=== PATIENT | female | born 2005 | race Caucasian/White ===

== ENCOUNTER 2025-04-02 14:47 | Outpatient (AMB) | payer BC, SELFPAY ==
--- OUTSIDE RECORDS SUMMARY | 2021-11-18 15:25 | XMS_ITS | Encounter Summary ---
Author Organization [facility] Address [address] [facility] [address] [place] [address] Phone Care Team Providers Care [place] Dental Lab Technician Name Role Phone Val Draper MD Primary Care Provid er Encounter Details Date Type Department Care Team (Late st Contact Info) Description 11/18/2021 3:25 PM EDT Hospital Encounter [facility] [address] [place] [address] Constanza Martinez FNP [address] [place] [address] [place] [address] [email or web address] Social History Tobacco Use Types Packs/Day Years [...] acute displaced fracture or dislocation. Constanza Martinez TABULATING CLERK IMG XR UPPER EXTREMITY Kristi l Result documented in this encounter Visit Diagnoses Not on filedocumented in this encounter Care Teams [place] Dental Lab Technician Relationship Specialty Start Date End Date Val Draper MD [address] [place] [address] GERALDO Olivares [address] PCP - General Pediatrics 11/18/21 08/14/24 documented as of this encounter Additional Source Comments The information contained in this document represents components of the legal health record. It is not the complete legal health record.[facility]
--- NOTE | 2025-04-02 14:56 | A.OFFPC_ITS ---
Vital Signs 04/02/25 15:06 Height 5 ft 5.83 in Weight 167 lb 2 oz BMI 27.1 BP 114/78 Blood Pressure Location Rt brachial Position Sitting Respiration 12 Pulse 92 Pulse Source Pulse Oximeter Temp 98.9 F Temp Source Oral Pulse Oximetry (%) 99 Oxygen Delivery Method Room Air Intake Visit Reasons: Est. Care Intake Note: New pateint visit Supervisor Kennel Required: No Allergies amoxicillin Allergy (Mild, Verified 04/02/25 15:03) Hives Tobacco use date assessed: 04/02/25 Dental Screening Dental Screen Date: 04/02/25 Did you have a dental visit in the last 12 months?: Yes Did you have a dental problem in the last 6 months where you did not have access to dental care?: No Was dental information given to patient?: Patient has dentist HPI HPI Comments History of Present Illness Details 20 year old female with past medical his tory of eczema, uveitis, RAD, presenting to [facility] care. In Jul/Aug got a cold/flu. Her acute symptoms resolved but cough has persisted since. She has been reliant on her inhaler that was prescribed around that time by urgent care. BH: Has been seeing a therapist for the past 9 months. Dad takes wellbutrin so therapist thinks this may be beneficial. Saw gynecology in the past. Has not had pap. She would like to start an OCP ROS CONSTITUTIONAL: Denies weight loss, fever and chills. HEENT: Denies changes in vision and hearing. RESPIRATORY: Denies SOB and cough. CV: Denies palpitations and CP GI: Denies abdominal pain, nausea, vomiting and diarrhea. : Denies dysuria and urinary frequency. MSK: Denies new myalgia and joint pain. SKIN: Belly button rash NEUROLOGICAL: Denies headache PSYCHIATRIC: Denies recent changes in mood. PHYSICAL EXAM: GENERAL: Alert and oriented x 3. NAD EYES: EOMI. Anicteric. HENT: Moist mucous membranes. No scleral icterus. No cervical lymphadenopathy. LUNGS: Clear to auscultation bilaterally. CARDIOVASCULAR: Regular rate and rhythm. No murmur. No JVD. ABDOMEN: Soft, non-tender +bs EXTREMITIES: No edema. Non-tender. SKIN: Tinea belly button NEUROLOGIC: No focal neurological deficits. CN II-XII grossly intact PSYCHIATRIC: Cooperative. Appropriate mood and affect PFSH Surgical History No pertinent past surgical history Family History Father Anxiety OCD (obsessive compulsive disorder) Paternal Grandfather Anxiety OCD (obsessive compulsive disorder) Other FH: mental illness Social History Housing: Condominium Alcohol intake: current Patient Tobacco Use Status: Never used Tobacco e-Cigarette/Vaping Use: Never Used Second Hand Smoke Exposure: No service: No Current occupational status: student Cognitive needs: No Hearing needs: No Vision needs: No Questionnaire PHQ-9 Over the last 2 weeks, how often have you been bothered by any of the following problems? 1. Little interest or pleasure in doing things: not at all 2. Feeling down, depressed, or hopeless: not at all 3. Trouble falling or staying asleep, or sleeping too much: not at all 4. Feeling tired or having little energy: not at all 5. Poor appetite or overeating: not at all 6. Feeling bad about yourself - or that you are a failure or have let yourself or your family down: not at all 7. Trouble concentrating on things, such as reading the newspaper or watching television: not at all 8. Moving or speaking so slowly that other people could have noticed. Or the opposite - being so fidgety or restless that you have been moving around a lot more than usual: not at all 9. Thoughts that you would be better off or of hurting yourself in some way: not at all Total score: 0 Depression Screening Interpretation: Negative Depression Screening Done: Yes 20441 - PHQ-9 Billing: Yes Source: Developed by Drs. Kervin Rodgers, Maureen Albert, Doyle Lunsford and colleagues, with an educational lexus from [email or web address]. Thrive Questionnaire Date Thrive assessed: 03/30/25 I am a: Patient What is your living situation today?: I have a steady place to live Within the past 12 months, did the food you bought not last and you didn't have the money to get more?: Never true Within the past 12 months, did you worry whether your food would run out before you got money to buy more?: Never true Do you have trouble paying for medicines?: No Do you have trouble getting transportation to medical appointments?: No Do you have trouble paying your heating and electricity bill?: No Do you have trouble taking care of your child, family member or friend?: No Do you have trouble with day-to-day activities such as bathing, preparing meals, shopping, managing finances, etc.?: No Are you currently unemployed and looking for a job?: No Are you interested in more education?: No Please select the resources that you would like help with: None Currently or been in a relationship where the following occur: No concerns reported THRIVE Score: 0 AUDIT C Alcohol Use Questionnaire (AUDIT-C) 1. How often do you have a drink containing alcohol?: 2-4 times a month 2. How many drinks containing alcohol do you have on a typical day when you are drinking?: 1 or 2 3. How often do you have six or more drinks on one occasion?: Never Total Score: 2 BOB-7 AMB Questionnaire BOB-7 Date BOB - 7 assessed: 04/02/25 Feeling nervous, anxious, or on edge: 1 = Several days Not being able to stop or control worryin = Several days Worrying too much about different things: 1 = Several days Trouble relaxin = Several days Being so restless that it is hard to sit still: 0 = Not at all Becoming easily annoyed or irritable: 0 = Not at all Feeling afraid as if something awful might happen: 1 = Several days Total BOB-7 score (0-4 normal; 5-9 mild; 10-14 moderate; 15-21 severe): 5 Source: Developed by Drs. Kervin Rodgers, Maureen Albert, Doyle Lunsford and colleagues, with an educational lexus from [email or web address]. BOB-7 Assessment Billing BOB-7 Assessment Tool: BOB-7 Assessment 38864 Physical exam (Primary Care) Vital Signs: Last Vital Signs Temp 98.9 F 04/02/25 15:06 Pulse 92 04/02/25 15:06 Resp 12 04/02/25 15:06 BP 114/78 04/02/25 15:06 Pulse Ox 99 04/02/25 15:06 Oxygen Delivery Method Room Air 04/02/25 15:06 BMI result Body Mass Index 27.1 Tobacco/Smoking Status: Tobacco use Status Tobacco use date assessed 04/02/25 04/02/25 14:59 Patient Tobacco Use Status Never used Tobacco 04/02/25 15:10 e-Cigarette/Vaping Use Never Used 04/02/25 14:59 PHQ-9: PHQ-9 Score PHQ-9: Total score 0 04/02/25 15:23 Depression Screening Interpretation: Negative Thrive Assessment: Date of Thrive Assessment Date Thrive assessed 03/30/25 04/02/25 14:59 Currently or been in a relationship where the following occur: No concerns reported Coding Level of Care Code New Pt Level 4 (62912) Complex EM visit Add On G2211 Diagnoses Chronic cough R05.3 Tinea cruris B35.6 control counseling Z30.09 Additional Codes BOB-7 Assessment Billing - BOB-7 Assessment Tool: BOB-7 Assessment 62971 ([id number]) PHQ-9 - 23859 - PHQ-9 Billing: Yes ([id number]) Assessment & Plan Assessment & Plan (1) Chronic cough: Code(s): R05.3 - Chronic cough Category: Medical (2) Tinea cruris: Code(s): B35.6 - Tinea cruris Category: Medical (3) control counseling: Code(s): Z30.09 - Encounter for other general counseling and advice on contraception Category: Medical Plan 20 yo to establish care Past medical, surgical, social reviewed OCP sent. Follows with non destructive testing supervisor. Advised to schedule an appt for pap Anxiety/depression-trial weelbutrin. Follow up in 4 weeks. continue therapy Cough, shortness of breath-pft, referral pulm Umbilical tinea-fluconazole x 2 doses, clotrimazole ordered Orders: Orders PFT pulmonary function test Today J45.909 - Unspecified asthma, uncomplicated, R05.3 - Chronic cough Referrals Pulmonology Referral J45.909 - Unspecified asthma, uncomplicated, R05.3 - Chronic cough Medications: New clotrimazole-betamethasone 1-0.05 % 1 appl topical BID PRN 45 grams 1RF rash 4 weeks albuterol sulfate 90 mcg/actuation (Ventolin HFA) 2 inhalations inhalation Q6H PRN 8.5 grams 3RF shortness of breath or wheezing bupropion HCl XL (Wellbutrin XL) 150 mg PO QAM 90 tabs 1RF norgestimate-ethinyl estradiol 0.18/0.215/0.25 mg-0.025 mg (Ucf-Dl-Pgafkhdp) 1 tab PO DAILY 84 tabs 3RF fluconazole may repeat second dose 72 hrs after first dose if symptoms persist 150 mg PO Q3D 2 tabs 0RF rash 2 doses
[2025-04-02 15:06] VITALS: BP 114/78; PULSE 92; RESP 12; TEMP 37.2; O2SAT 99; BMI 27.1
--- OUTSIDE RECORDS SUMMARY | 2025-04-02 15:21 | XMS_ITS | Patient Health Record ---
[facility] [place] Address [address] [place] [address] Care Team Providers Care Skirt Panel Assembler Name Role Phone Baron FOSTER, Val Primary Care Provider aMta Palomino Unavailable [phone] Gretta Zafar Unavailable [phone] Allergies Allergen (clinical drug ingredient) Drug/Non Drug Allergy documented on EMR Reaction Allergy Type Onset Date Status amoxicillin Amoxicillin Swelling,hives Drug Allergy Active Penicillin Swelling/ joints Drug Allergy Active Reason For Referral No Information Medications Medication SIG (Take, Route, Fr equency, Duration) Notes Start Date End Date Status Ketoconazole 1 % 1 application as nee ded Externally Active Hydrocortisone 2.5 % 1 application Exter arie Once a day Active Social History Tobacco Use: Social History Observation Description Date Details (start date - stop date) Never Smoker NA - NA Tobacco Use/Smoking Question Answer Notes Are you a: nonsmoker Additional Findings: Tobacco Non-User Aggressive non-smoker Alcohol Screen Question Answer Notes Did you have a drink containing alcohol in the p ast year? No Points 0 Interpretation Negative Encounters Encounter Location Date Provider Diagnosis [facility] [address] [place] [address] 02/05/2025 Gretta Zafar Plan Of Treatment Pending Test Test Name Order Date X ray : Foot, left 3V 09/16/2020 X ray : Foot, right 3V 09/16/2020 Insurance Providers Payer Name Payer Address Payer Phone Subscriber Number Group Number Insured Name Patient Relationship to Insured Coverage Start Date Coverage End Date [facility] [address] [place] [phone] [id number] Juan Blanco Child - Insured does not have Financial Responsibility (includes legally adopted child) Medical (General) History Medical History History ICD Code Broken bones Psoriasis/eczema Anxiety Surgical History Surgery Date(Month/Year)
--- OUTSIDE RECORDS SUMMARY | 2025-04-02 15:21 | XMS_ITS | Clinical Summary ---
Author Organization [facility] Address [address] [place] [address] Phone Care Team Providers Care Cheese Sprayer Name Role Phone Unavailable Primary Care Provider Unavailabl e Allergies Active Allergy Reactions Criticality Noted Date Comments Amoxicillin Hives,Swelling 09/22/2019 See photos 09/22/19 Medications hydrOXYzine 25 MG tabletIndication s:Anxiety Take 2 tablets (50 mg total) by mouth nightly as needed for anxiety. 60 tablet 1 3 Active Additional Information Patient not taking.Reported on 05/30/2024 ketoconazole 2 % shampooIndicatio ns:Dandruff Apply topically 2 (two) times a week. 120 mL 1 4 Active hydrocortisone 0.2 % creamIndications :Eczema, unspecified type Apply to affected area twice a day as needed (do not use for more than 2 weeks each month) 45 g 4 Active Active Problems Problem Noted Date Diagnosed Date Uveitis of both eyes 05/30/2024 Overview (05/30/2024): Was followed and treated by Ophthalmology and referred to Rheumatology (PORFIRIO was positive) Eczema 07/22/2020 Overview (07/22/2020): Occ flares - Westcort prn and moisturize daily Anxiety 02/14/2018 Overview (05/30/2024): Recommended counseling Resolved Problems Problem Noted Date Diagnosed Date Resolved Date Need for case management follow-up 07/22/2020 04/28/2023 Immunizations Immunization Administration Dates Next Due DTaP 5 02/22/2008, 5,2004,06/09,2004 H1N1 08/20/2009 HPV Vaccine 9 Valent 06/29/2017,06/10/2016 Hep A, ped/adol 05/21/2014,03/20/2011 Hep B, ped/adol 2004,2004,2004 Hib (HbOC) 2004,2004,2004 Hib (PRP-T) 05/25/2005 IPV 02/22/2008, 5,2004,03/24 Influenza, injectable, quadrivalent 06/10/2016 Influenza, injectable, quadr ivalent, preservative free 04/24/2021,04/23/2020,06/08/2019,07/19,06/29/2017,05/29/2015,05/21/2014 Influenza, injectable, trivalent 06/12/2009,07/09,06/22/2005 Influenza, intranasal, quadrivalent 05/09/2013 MMR 02/22/2008,02/16/2005 Meningococcal B Trumenba 04/22/2022,09/15/2021 Meningococcal Conj (Menactra) MCV4P 07/23/2020,0 05/29/2015 Pneumococcal Conjugate 05/25/2005,2003,2004,03/24 Tdap 05/29/2015 Varicella 02/22/2008,02/16/2005 Family History Relation Name Status Comments Father Juan Alive Father: Alive a nd well Half-Brother Alive Half brother (M ): Alive and well Half-Sister Alive Half sister (M) : Alive and well Mother Patricia Alive Mother: Alive a nd well Other No family histo ry of *CVA/Stroke, No family history of *Sudden /[place] under 55, , No family history of *Heart Disease, Family history of *Dental caries Social History Tobacco Use Types Packs/Day Years Used Date Smoking Tobacco: Never Hunger/Food Answer Date Recorded In the last 12 months, did y ou or your family ever eat less than you felt you should because there wasn't enough money for food? No 05/29/2024 Stable Housing Answer Date Recorded Are you worried that in the next 2 months you may not have stable housing? No 05/29/2024 Transportation Concerns Answer Date Rec orded In the last 12 months, have you or your family ever had to go without healthcare because you didn't have a way to get there? No 05/29/2024 Hazards in Home Answer Date Recorded Think about the place you li ve. Do you have problems with any of the following? Pests (mice or roaches), mold, no/not working smoke detectors, water leaks, no window guards. No 2023 Financing Utilities Answer Date Recorde d In the last 12 months, has t he electric, gas, oil, or water company threatened to shut off your services in your home? No 05/29/2024 Safety at Home Answer Date Recorded Are you or your family worried about feeling saf e in your home? No 05/29/2024 Outside Support Answer Date Recorded Do you feel that you need mo re support from other people or programs to help you care for yourself or your family? No 05/29/2024 Understanding Health Concerns Answer Da te Recorded Do you need help understandi ng your or your child's healthcare needs (diagnosis, medications, plan, etc.)? No 05/29/2024 Financing Health Concerns Answer Date R ecorded In the last 12 months, was t here a time when your child needed to see a doctor or get medications or supplies but could not because of cost? No 05/29/2024 Missing School or Work Answer Date Jeremias rded Did you or your child miss s chool or work because of a health problem that could have been avoided? No 05/29/2024 Child Education Answer Date Recorded Do you have concerns about y our/your child's learning or behavior in school, preschool, or daycare? No 05/29/2024 Comments No Sex and Gender Information Value Date Recorded Sex Assigned at Female 05/30/2024 9:31 AM EDT Legal Sex Female 4:59 PM EDT Gender Identity Female 07/22/2020 2:07 PM EST Sexual Orientation Straight 04/28/2023 2: 31 PM EDT Last Filed Vital Signs Vital Sign Reading Time Taken Comments Blood Pressure 124/66 05/30/2024 9:46 AM EDT Man ually Pulse 77 05/30/2024 8:58 AM EDT Temperature 37.1 C (98.8 F) 07/22/2020 4:15 PM EST Respiratory Rate - - Oxygen Saturation 100% 01/01/2015 12:00 AM EDT Inhaled Oxygen Concentration - - Weight 76.7 kg (169 lb) 05/30/2024 8:58 AM EDT Height 166.7 cm (5' 5.63 ) 05/30/2024 8:58 AM ED T Body Mass Index 27.59 05/30/2024 8:58 AM EDT Plan of Treatment Health Maintenance Due Date Last Done Comments Chlamydia and Gonorrhea Screening 09/06/2024 05/30/2024, 04/28/2023, 01/21/2023, Additional history exists Influenza Vaccines (#1) 2025 06/28/20, 06/05/2023, 05/22/2022, Additional history exists DTaP,Tdap,and Td Vaccines (7 - Td or Tdap) 05/29/2025 05/29/2015, 02/22/2008, 08/17/2005, Additional history exists Hepatitis B Vaccines Completed 2004, 2004, 2004 HIB Vaccines Completed 05/25/2005, 08/06, 2004, Additional history exists Pneumococcal Vaccine Completed 05/25/2005, 2004, 2004, Additional history exists IPV Vaccines Completed 02/22/2008, 11/05, 2004, Additional history exists MMR Vaccines Completed 02/22/2008, 02/16/2005 Varicella Vaccines Completed 02/22/2008, 02/16/2005 Hepatitis A Vaccines Completed 05/21/2014, 03/20/20 11 HPV Vaccines Completed 06/29/2017, 06/10/2016 Meningococcal Vaccine Completed 07/23/2020, 015 Men B Vaccine Completed 04/22/2022, 09/15/2021 COVID-19 Vaccine Completed 06/28/2024, , 05/22/2022, Additional history exists Procedures * Due to [place] state law, this organization might not be sharing sensitive test results. Procedure Name Priority Date/Time Associated Diagnosis Comments CHLAMYDIA AND GONORRHEA, AMPLIFIED Routine 05/30/2024 9:48 AM EDT Screening examination for bacterial and spirochetal disease from Last 3 Months or Most Recently Relevant to Health Maintenance Results * Due to [place] state law, this organization might not be sharing sensitive test results. * Chlamydia and Gonorrhoea, Amplified (Urine) (05/30/2024 9:48 AM EDT) C trach JINNY Negative Negative [facility] N gonorrhoeae JINNY Negative Negative [facility] Urine (Urine, Random (not clean void)) 05/30/2024 9:48 AM EDT 05/30/2024 Comment:UR Narrative [facility] - 06/01/2024 12:06 AM EDT Performed at: 01 - [address] [place], [address], [place], [place] [id number] Cyber Intelligence Analyst: Fadi Stiles MD, Phone: [phone] us Val Draper MD LAB MICROBIOLOGY - GENERAL ORDERABLES Final Result [facility] [address] [place] [address] from Last 3 Months or Most Recently Relevant to Health Maintenance
== END 2025-04-02 15:38 | disposition home or self-care (01) ==
LOC: HO.HMCFM 14:48
PROVIDERS: PCP Internal Medicine; Visit Provider Internal Medicine
DX: R05.3 Chronic cough (principal); B35.6 Tinea cruris; Z30.09 Encounter for other general counseling and advice on contraception

== ENCOUNTER → 2025-04-02 14:47 | Outpatient (BNVA) | payer BC, SELFPAY | PROVIDERS: PCP Internal Medicine; Visit Provider Internal Medicine | DX: Z13.31 Encounter for screening for depression (principal); Z13.30 Encounter for screening examination for mental health and behavioral disorders, unspecified; R05.3 Chronic cough; B35.6 Tinea cruris | CPT/HCPCS: 96127 ==

== ENCOUNTER 2025-04-23 08:57 | Outpatient (AMB) | payer BC, SELFPAY ==
--- OUTSIDE RECORDS SUMMARY | 2021-11-18 15:25 | XMS_ITS | Encounter Summary ---
Author Organization [facility] Address [address] [facility] [address] [place] [address] Phone Care Team Providers Care Commercial Lines Account Manager Name Role Phone Val Draper MD Primary Care Provid er Encounter Details Date Type Department Care Team (Late st Contact Info) Description 11/18/2021 3:25 PM EDT Hospital Encounter [facility] [address] [place] [address] Constanza Martinez FNP [address] [place] [address] [place] [address] [email or web address] Social History Tobacco Use [...] acute displaced fracture or dislocation. Constanza Martinez MANAGER FACILITY IMG XR UPPER EXTREMITY Kristi l Result documented in this encounter Visit Diagnoses Not on filedocumented in this encounter Care Teams Commercial Lines Account Manager Relationship Specialty Start Date End Date Val Draper MD [address] [place] [address] GERALDO Olivares [address] PCP - General Pediatrics 11/18/21 08/14/24 documented as of this encounter Additional Source Comments The information contained in this document represents components of the legal health record. It is not the complete legal health record.[facility]
--- OUTSIDE RECORDS SUMMARY | 2025-04-23 09:27 | XMS_ITS | Clinical Summary ---
Author Organization [facility] Address [address] [place] [address] Phone Care Team Providers Care Supply Requirements Officer Name Role Phone Unavailable Primary Care Provider [...] of *CVA/Stroke, No family history of *Sudden /[place] under 55, , No family history of [...] Additional history exists Procedures * Due to [place] state law, this organization might not be sharing sensitive test results. Procedure Name Priority Date/Time Associated Diagnosis Comments CHLAMYDIA AND GONORRHEA, AMPLIFIED Routine 05/30/2024 9:48 AM EDT Screening examination for bacterial and spirochetal disease from Last 3 Months or Most Recently Relevant to Health Maintenance Results * Due to [place] state law, this organization might not be sharing sensitive test results. * Chlamydia and Gonorrhoea, Amplified (Urine) (05/30/2024 9:48 AM EDT) C trach JINNY Negative Negative [facility] N gonorrhoeae JINNY Negative Negative [facility] Urine (Urine, Random (not clean void)) 05/30/2024 9:48 AM EDT 05/30/2024 Comment:UR Narrative [facility] - 06/01/2024 12:06 AM EDT Performed at: 01 - [address] [place], [address], [place], [place] [id number] Inpatient Auditor: Fadi Stiles MD, Phone: [phone] us Val Draper MD LAB MICROBIOLOGY - GENERAL ORDERABLES Final Result [facility] [address] [place] [address] from Last 3 Months or Most Recently Relevant to Health Maintenance
--- OUTSIDE RECORDS SUMMARY | 2025-04-23 09:27 | XMS_ITS | Patient Health Record ---
Author Organization [facility] [place] Address [address] [place] [address] Care Team Providers Care Simonizer Name Role Phone Baron FOSTER, Val Primary Care Provider Mata Palomino Unavailable [phone] Gretta Zafar Unavailable [phone] Allergies Allergen (clinical drug ingredient) Drug/Non Drug [...] Negative Encounters Encounter Location Date Provider Diagnosis [facility] [address] [place] [address] 02/05/2025 Gretta Zafar Plan Of Treatment Pending Test Test Name Order Date X ray : Foot, left 3V 09/16/2020 X ray : Foot, right 3V 09/16/2020 Insurance Providers Payer Name Payer Address Payer Phone Subscriber Number Group Number Insured Name Patient Relationship to Insured Coverage Start Date Coverage End Date Man [facility] [id number] [place] [id number] [phone] [id number] Juan Blanco Child - Insured does not have Financial Responsibility (includes legally adopted child) Medical (General) History Medical History History ICD Code Broken bones Psoriasis/eczema Anxiety Surgical History Surgery Date(Month/Year)
[2025-04-23 10:15] VITALS: BP 114/70; PULSE 86; TEMP 37.2; O2SAT 98; BMI 27.4
--- NOTE | 2025-04-23 10:15 | MHC.OFFWIV ---
Intake Vital Signs 04/23/25 10:15 Height 5 ft 5.83 in Weight 169 lb 2 oz BMI 27.4 BP 114/70 Blood Pressure Location Lt brachial Position Sitting Pulse 86 Pulse Source Pulse Oximeter Temp 98.9 F Temp Source Oral Pulse Oximetry (%) 98 Oxygen Delivery Method Room Air Intake Visit Reasons: EP Rash Patient Tobacco Use Status: Never used Tobacco [employer] Truck Driver Required: No Is last menstrual period known: Yes Last menstrual period: 04/09/25 Post menopausal: No Patient : No Allergies amoxicillin Allergy (Mild, Verified 04/23/25 10:19) Hives HPI HPI Comments History of Present Illness Details History of Present Illness - The patient is a 20-year-old female presenting with a rash that has spread from her chest and neck to her scalp and torso. - The rash began over a week ago on the chest and neck and spread to the scalp and torso. - Initially suspected to be eczema due to its itchy nature, but the appearance and spread suggested otherwise. - The rash is itchy but not painful or burning. - The patient experienced a high fever of 101?F for several days, accompanied by chills and headache, but no other symptoms. - Rash was present prior to illness - went away - came back after illness resolved. - The fever and associated symptoms resolved without a definitive diagnosis after negative tests for flu, COVID-19, and strep. - The rash persisted despite the resolution of fever and was not alleviated by hydrocortisone cream. - The patient has a history of eczema and has used clotrimazole and betamethasone cream for a different rash recently. Physical Exam General: Cooperative, healthy appearing, comfortable, no acute distress and well developed Orientation: Patient oriented x3 Limitations: No limitations Head: Normal to inspection Ears: Hearing grossly normal bilaterally Nose: Normal External nose present Face and sinus: normal to exam Eyes: Appearance normal, both eyes and all related structures Neck: Normal visual inspection and Yes full ROM Respiratory: Normal respiratory effort and able to speak in complete sentences. Skin: erythematous, very slightly raised maculopapular rash noted on chest, neck, scalp, torso Neuro: Patient oriented x3 Extremities: Normal to inspection [facility] Surgical History No pertinent past surgical history Family History Father Anxiety OCD (obsessive compulsive disorder) Paternal Grandfather Anxiety OCD (obsessive compulsive disorder) Other FH: mental illness Social History Housing: Condominium Alcohol intake: current Patient Tobacco Use Status: Never used Tobacco e-Cigarette/Vaping Use: Never Used Second Hand Smoke Exposure: No Patient : No service: No Current occupational status: student Cognitive needs: No Hearing needs: No Vision needs: No Female Reproductive History Menstrual Date of last menstrual period: 04/09/25 Review of Systems Const All systems reviewed & are unremarkable except as noted in HPI and below Physical Exam Vital Signs: Last Vital Signs Temp 98.9 F 04/23/25 10:15 Pulse 86 04/23/25 10:15 BP 114/70 04/23/25 10:15 Pulse Ox 98 04/23/25 10:15 Oxygen Delivery Method Room Air 04/23/25 10:15 BMI result Body Mass Index 27.4 Assessment & Plan Assessment & Plan (1) Rash: Code(s): R21 - Rash and other nonspecific skin eruption Plan: Plan - Unclear if viral exanthem or allergic dermatitis as pt states rash present prior to illness. - A burst of prednisone was prescribed to address the rash, with instructions to monitor for improvement. - A less potent topical cream was recommended for faciall application, avoiding areas near the eyes. - The patient was advised that if the rash is viral, it may resolve on its own, but prednisone may help if it is not viral. - The patient was instructed not to use the prescribed triamcinolone cream concurrently with other creams. Patient was informed and verbally consented to the use of an ambient scribe for clinic note documentation during this visit. Medications: New prednisone 20 mg PO DAILY 5 tabs 0RF triamcinolone acetonide 0.1% 1 appl topical BID 30 grams 0RF Coding Level of Care Code Est Pt Level 3 (19436) Diagnoses Rash R21
== END 2025-04-23 10:49 | disposition home or self-care (01) ==
PROVIDERS: PCP Internal Medicine; Visit Provider Physician Assistant
DX: R21 Rash and other nonspecific skin eruption (principal)

== ENCOUNTER 2025-05-04 15:26 | Outpatient (AMB) | payer BC, SELFPAY ==
--- OUTSIDE RECORDS SUMMARY | 2021-11-18 15:25 | XMS_ITS | Encounter Summary ---
Author Organization [facility] Address [address] [facility] [address] [place] [address] Phone Care Team Providers Care Fueler Name Role Phone Val Draper MD Primary Care Provid er Encounter Details Date Type Department Care Team (Late st Contact Info) Description 11/18/2021 3:25 PM EDT Hospital Encounter [facility] [address] [place] [address] Constanza Martinez FNP [address] [place] [address] [place] [address] [email or web address] Social History Tobacco Use Types Packs/Day Years [...] acute displaced fracture or dislocation. Constanza Martinez RETAIL COVERAGE MERCHANDISER LEAD IMG XR UPPER EXTREMITY Kristi l Result documented in this encounter Visit Diagnoses Not on filedocumented in this encounter Care Teams Fueler Relationship Specialty Start Date End Date Val Draper MD [address] [place] [address] GERALDO Olivares [address] PCP - General Pediatrics 11/18/21 08/14/24 documented as of this encounter Additional Source Comments The information contained in this document represents components of the legal health record. It is not the complete legal health record.[facility]
--- OUTSIDE RECORDS SUMMARY | 2024-08-15 09:57 | XMS_ITS | Encounter Summary ---
Author Organization [facility] Address [address] [employer] [facility] [address] [place] [address] Phone Care Team Providers Care Global Safety Officer Name Role Phone Teresa Shaw MD Primary Care Provider + [phone] Encounter Details Date Type Department Care Team (Late st Contact Info) Description 08/15/2024 8:57 AM EST Hospital Encounter [facility] [address] [place] [address] Constanza Martinez FNP [address] [place] [phone] [email or web address] Social History Tobacco Use Types Packs/Day [...] clinician's provided indication for this examination in [facility]: Cough; COUGH AND SOB FOR 2 MONTHS COMPARISON: None. FINDINGS: Devices/Tubes/Lines: None. Lungs: No focal consolidation or pulmonary edema. Pleura: No pleural effusion or pneumothorax. Heart/Mediastinum: Normal heart and mediastinum. Bones/Soft Tissues: No significant skeletal abnormality. Procedure Note Erika Urbano MD - 08/15/2024 XR CHEST PA AND LATERAL 2 VIEWS Referring clinician's provided indication for this examination in [facility]:Cough; COUGH AND SOB FOR 2 MONTHS COMPARISON: None. FINDINGS: Devices/Tubes/Lines: None. Lungs: No focal consolidation or pulmonary edema. Pleura: No pleural effusion or pneumothorax. Heart/Mediastinum: Normal heart and mediastinum. Bones/Soft Tissues: No significant skeletal abnormality. IMPRESSION: No focal consolidation. Constanza Martinez POINTER HELPER IMG XR CHEST Final Resul t documented in this encounter Visit Diagnoses Not on filedocumented in this encounter Care Teams Global Safety Officer Relationship Specialty Start Date End Date Teresa Shaw MD PCP - General Internal Medicine 08/15/24 03/21/25 documented as of this encounter Additional Source Comments The information contained in this document represents components of the legal health record. It is not the complete legal health record.[facility]
--- OUTSIDE RECORDS SUMMARY | 2025-03-22 10:14 | XMS_ITS | Encounter Summary ---
Author Organization [facility] Address [address] [facility] [address] [place] [address] Phone Care Team Providers Care Environmental Sustainability Manager Name Role Phone Val Draper MD Primary Care Provid er Encounter Details Date Type Department Care Team (Late st Contact Info) Description 03/22/2025 10:14 AM EDT Hospital Encounter [facility] [address] [place] [id number] Constanza Martinez FNP [address] [place] [address] [place] [address] [email or web address] [email or web address] Social History Tobacco Use Types Packs/Day [...] skeletal abnormality. IMPRESSION: Normal chest. Constanza Martinez GEAR KEEPER IMG XR CHEST Final Resul t documented in this encounter Visit Diagnoses Not on filedocumented in this encounter Care Teams Environmental Sustainability Manager Relationship Specialty Start Date End Date Val Draper MD [address] [place] [address] GERALDO Olivares [phone] PCP - General Pediatrics 03/22/25 04/19/25 documented as of this encounter Additional Source Comments The information contained in this document represents components of the legal health record. It is not the complete legal health record.[facility]
--- NOTE | 2025-05-04 15:23 | A.OFFPC_ITS ---
Intake Visit Reasons: 4 week telehealth Intake Note: Medication update Talent Acquisition Director Required: No Allergies amoxicillin Allergy (Mild, Verified 05/04/25 15:23) Hives Tobacco use date assessed: 04/02/25 Dental Screening Dental Screen Date: 04/02/25 HPI HPI Comments History of Present Illness Details 20 year old female with past medical his tory of eczema, uveitis, RAD, presenting for follow up She started wellbutrin after her last visit. She also started OCP. She is not sure if the wellbutrin is helping-she feels that her hormones are off since starting the ocp. She would like to consider increasing the wellbutrin and giving it a bit more time with the ocp to see how she feels Persistent cough BH: Has been seeing a therapist for the past 9 months and started wellbutrin 150mg at last visit (Dad takes wellbutrin) Saw gynecology in the past. ROS see HPI PHYSICAL EXAM: Telehealth [facility] Surgical History No pertinent past surgical history Family History Father Anxiety OCD (obsessive compulsive disorder) Paternal Grandfather Anxiety OCD (obsessive compulsive disorder) Other FH: mental illness Social History Housing: Condominium Alcohol intake: current Patient Tobacco Use Status: Never used Tobacco e-Cigarette/Vaping Use: Never Used Second Hand Smoke Exposure: No Use of substances other than those prescribed or required for medical reasons: No service: No Current occupational status: student Cognitive needs: No Hearing needs: No Vision needs: No Questionnaire Thrive Questionnaire Date Thrive assessed: 03/30/25 I am a: Patient What is your living situation today?: I have a steady place to live Within the past 12 months, did the food you bought not last and you didn't have the money to get more?: Never true Within the past 12 months, did you worry whether your food would run out before you got money to buy more?: Never true Do you have trouble paying for medicines?: No Do you have trouble getting transportation to medical appointments?: No Do you have trouble paying your heating and electricity bill?: No Do you have trouble taking care of your child, family member or friend?: No Do you have trouble with day-to-day activities such as bathing, preparing meals, shopping, managing finances, etc.?: No Are you currently unemployed and looking for a job?: No Are you interested in more education?: No Please select the resources that you would like help with: None Currently or been in a relationship where the following occur: No concerns reported THRIVE Score: 0 BOB-7 AMB Questionnaire BOB-7 Date BOB - 7 assessed: 04/02/25 Source: Developed by Drs. Kervin Rodgers, Maureen Albert, Doyle Lunsford and colleagues, with an educational lexus from [employer]. Physical exam (Primary Care) Tobacco/Smoking Status: Tobacco use Status Tobacco use date assessed 04/02/25 05/04/25 15:25 Patient Tobacco Use Status Never used Tobacco 05/04/25 15:27 e-Cigarette/Vaping Use Never Used 05/04/25 15:27 Thrive Assessment: Date of Thrive Assessment Date Thrive assessed 03/30/25 05/04/25 15:25 Currently or been in a relationship where the following occur: No concerns reported Telehealth Telehealth Telehealth Platform: Telephone Location of provider rendering services: practice address Location of patient: address on file Patient Identification confirmed using: Name, : Yes Telehealth method: voice only Patient verbally consented to treatment: Yes Patient verbally consented to billing insurance company: Yes Patient informed of any privacy concerns related to visit: Yes Minutes spent on Phone/Video with Pt.: 22 Coding Level of Care Code Tele Est Pt Level 3 (91863) Diagnoses Recurrent major depressive disorder, in partial remission F33.41 Active/Remission status: in partial remission Depression Type: major depressive disorder Major depression recurrence: recurrent Anxiety F41.9 Assessment & Plan Assessment & Plan (1) Depression: Code(s): F32.A - Depression, unspecified Category: Medical Qualifiers: Active/Remission status: in partial remission Depression Type: major depressive disorder Major depression recurrence: recurrent Qualified Code(s): F33.41 - Major depressive disorder, recurrent, in partial remission (2) Anxiety: Code(s): F41.9 - Anxiety disorder, unspecified Category: Medical Plan Depression and anxiety-Increase wellbutrin to 300mg daily Continue ocp Reevaluate in 4-6 weeks or sooner as needed Medications: New bupropion HCl XL (Wellbutrin XL) 300 mg PO DAILY 90 tabs 1RF Discontinued bupropion HCl XL (Wellbutrin XL) Discontinued Reason: Doctor's Order 150 mg PO QAM 90 tabs 1RF
--- OUTSIDE RECORDS SUMMARY | 2025-05-04 15:28 | XMS_ITS | Encounter Summary ---
Author Organization [facility] Address [address] [place] [address] Phone Care Team Providers Care Exploration Engineer Name Role Phone Val Draper MD Primary Care Provider [phone]- [phone] Encounter Details Date Type Department Care Team (Late st Contact Info) Description 03/22/2015 Documentation [facility] [place] Family Medicine [address] [place], [place] [phone] Family Medicine, Physician [address] [place], [place] [address] Social History Tobacco Use Types Packs/Day Years Used Date Smoking Tobacco: Never Assessed Comments Unknown Sex and Gender Information Value Date Recorded Sex Assigned at Female 05/30/2024 9:31 AM EDT Legal Sex Female 4:59 PM EDT Gender Identity Female 07/22/2020 2:07 PM EST Sexual Orientation Straight 04/28/2023 2: 31 PM EDT documented as of this encounter Plan of Treatment Not on file documented as of this encounter Visit Diagnoses Not on filedocumented in this encounter Care Teams Exploration Engineer Relationship Specialty Start Date End Date Val Draper MD [address] [place] [address] PCP - General 04/16/17 07/12/24 documented as of this encounter
--- OUTSIDE RECORDS SUMMARY | 2025-05-04 15:28 | XMS_ITS | Encounter Summary ---
Author Organization [facility] Address [address] [place] [address] Phone Care Team Providers Care Indoor Plant Technician Name Role Phone Val Draper MD Primary Care Provider [phone]- [phone] Encounter Details Date Type Department Care Team (Late st Contact Info) Description 11/09/2014 Documentation [facility] [place] Medicine [address] [place], [place] [phone] Family Medicine, Physician [address] [place], [place] [phone] Social History Tobacco Use Types Packs/Day Years [...] on filedocumented in this encounter Care Teams Indoor Plant Technician Relationship Specialty Start Date End Date Val Draper MD [address] [place] [address] PCP - General 04/16/17 07/12/24 documented as of this encounter
--- OUTSIDE RECORDS SUMMARY | 2025-05-04 15:28 | XMS_ITS | Encounter Summary ---
Author Organization [facility] Address [address] [place] [address] Phone Care Team Providers Care Dressage Judge Name Role Phone Val Draper MD Primary Care Provider [phone]- [phone] Encounter Details Date Type Department Care Team (Late st Contact Info) Description 05/30/2015 Documentation [facility] [place] Family Medicine [address] [place], [place] [phone] Family Medicine, Physician [address] [place], [place] [address] Social History Tobacco Use Types Packs/Day Years [...] on filedocumented in this encounter Care Teams Dressage Judge Relationship Specialty Start Date End Date Val Draper MD [address] [place] [address] PCP - General 04/16/17 07/12/24 documented as of this encounter
--- OUTSIDE RECORDS SUMMARY | 2025-05-04 15:28 | XMS_ITS | Encounter Summary ---
Author Organization [facility] Address [address] [place] [address] Phone Care Team Providers Care Rail Assembler Name Role Phone Val Draper MD Primary Care Provider [phone]- [phone] Encounter Details Date Type Department Care Team (Late st Contact Info) Description 05/22/2014 Documentation [facility] [place] Family Medicine [address] [place], [place] [phone] Family Medicine, Physician [address] [place], [place] [address] Social History Tobacco Use Types Packs/Day Years [...] on filedocumented in this encounter Care Teams Rail Assembler Relationship Specialty Start Date End Date Val Draper MD [address] [place] [address] PCP - General 04/16/17 07/12/24 documented as of this encounter
--- OUTSIDE RECORDS SUMMARY | 2025-05-04 15:28 | XMS_ITS | Clinical Summary ---
Author Organization [facility] Address [address] [address] Phone Care Team Providers Care Professor Of Philosophy Name Role Phone Teresa Shaw MD Primary Care Provider [phone] Allergies Active Allergy Reactions Criticality Noted Date Comments Amoxicillin Hives,Swelling 09/22/2019 See photos 09/22/19 Other Reaction(s): Swelling,hives Penicillin 08/15/2024 Other Reaction(s): Swelling/ joints Medications hydrocortisone valerate 0.2 % cream APPLY TOPICALLY TO THE AFFECTED AREA TWICE DAILY NEEDED. DO NOT USE FOR MORE THAN 2 WEEKS EACH MONTH 4 Active ketoconazole (NIZORAL) 1 % shampoo 1 application as needed Externally Active albuterol (PROAIR HFA) 90 mcg/actuation inhaler Inhale 2 puffs into the lungs every 4 (four) hours as needed for wheezing. 18 g 5 Active benzonatate (TESSALON) 100 MG capsule Take 2 capsules (200 mg total) by mouth 3 (three) times a day as needed for cough. 21 capsule 5 Active Additional Information Patient not taking.Reported on 04/20/2025 inhaler spacing device (AEROCHAMBER,BR EATITE) Spcr Inhale 1 each into the lungs every 4 (four) hours as needed (with inhaler). 1 each 5 Active albuterol (PROAIR HFA) 90 mcg/actuation inhaler Inhale 2 puffs into the lungs every 4 (four) hours as needed for wheezing. 18 g 5 Active buPROPion (WELLBUTRIN XL) 150 MG ER 24 hr tablet Take 150 mg by mouth every morning. 5 Active clotrimazole-be tamethasone (LOTRISONE) cream APPLY TOPICALLY TO THE AFFECTED AREA TWICE DAILY FOR 4 WEEKS NEEDED FOR RASH Active TRI-LO-SAMM 0.18/0.215/0.25 mg-0.025 mg Tab Take 1 tablet by mouth every morning. 5 Active terbinafine HCL (LAMISIL) 250 mg tablet Take 1 tablet by mouth every morning. 5 Active Active Problems Problem Noted Date Diagnosed Date Uveitis of both eyes 05/30/2024 Overview (06/15/2024): Was followed and treated by Ophthalmology and referred to Rheumatology (PORFIRIO was positive) Eczema 07/22/2020 Overview (03/18/2022): Occ flares - Westcort prn and moisturize daily Anxiety 02/14/2018 Overview (06/15/2024): Recommended counseling Resolved Problems Problem Noted Date Diagnosed Date Resolved Date Need for case management follow-up 07/22/2020 07/10/2024 Encounters Date Type Department Care Team Description 04/20/2025 10:50 AM EDT Office Visit [facility] at [address] [address] Aslhey Contreras, JAYDEN Acute upper respiratory infection (Primary Dx) 03/22/2025 10:14 AM EDT Hospital Encounter [facility] [address] [place] [address] Constanza Martinez FNP 03/22/2025 9:40 AM EDT Office Visit [facility] at [address] [address] Constanza Martinez FNP Acute bronchitis, unspecified organism (Primary Dx); Allergic rhinitis, unspecified seasonality, unspecified trigger 02/26/2025 8:10 AM EDT Office Visit [facility] at [address] [address] MichelleConstanza, DONATIONS ATTENDANT Acute bronchitis, unspecified organism (Primary Dx) from Last 3 Months Immunizations Immunization Administration Dates Next Due COVID-19 Pfizer Comirnaty Vaccine 12+ 06/05/2023 HPV9 06/29/2017,06/10/2016 IPV 02/22/2008, 5,2004,03/24 Influenza Quadrivalent MDCK Preservative Free IM 05/22/2022 Influenza Quadrivalent Prese rvative Free IM 06/05/2023,04/24/2021,04/23/2020,06/08,07/19/2018,06/29/2017,05/29/2015 Influenza Quadrivalent w/ Pr eservative IM 06/10/2016 MMR 02/22/2008,02/16/2005 Meningococcal B, recombinant (MenB-FHbp) 04/22/2022,09/15/2021 Meningococcal MCV4P 07/23/2020,05/29/2015 Tdap 05/29/2015 Varicella 02/22/2008,02/16/2005 Social History Tobacco Use Types Packs/Day Years Used Date Smoking Tobacco: Never Passive Smoke Exposure: Never Smokeless Tobacco: Never Tobacco Cessation:Counseling Given: Not Answered Alcohol Use Standard Drinks/Week Comments Never 0 [...] Orientation Straight 05/01/2024 9: 59 AM EDT Last Filed Vital Signs Vital Sign Reading Time Taken Comments Blood Pressure 115/82 04/20/2025 10:38 AM EDT Pulse 112 04/20/2025 10:38 AM EDT Temperature 38.3 C (101 F) 04/20/2025 10:38 AM EDT Respiratory Rate 16 04/20/2025 10:38 AM EDT Oxygen Saturation 100% 04/20/2025 10:38 AM EDT Inhaled Oxygen Concentration - - Weight 74.8 kg (165 lb) 04/20/2025 10:38 AM EDT Height 165.1 cm (5' 5 ) 07/10/2024 11:05 AM EST Body Mass Index 27.46 07/10/2024 11:05 AM EST Plan of Treatment Health Maintenance Due Date Last Done Comments COMBINED DTaP,Tdap,Td (2 - Td or Tdap) 06/26/2015 05/29/2015 DEPRESSION SCREENING 2016 ADOLESCENT UNIVERSAL LIPID SCREENING 02/05/2021 HEPATITIS C SCREENING 02/05/2022 HIV ONE-TIME SCREENING (18-65 YEARS) 02/05/2022 PAP SMEAR 02/05/2025 Adult Td,Tdap Booster 05/29/2025 05/29/2015 SMOKING Hx and SMOKELESS TOBACCO SCREENING 04/20/2026 04/20/2025 MMR VACCINES Completed 02/22/2008, 02/16/2005 HPV VACCINES Completed 06/29/2017, 06/10/2016 MENINGOCOCCAL VACCINES (ACWY) Completed 07/23/2020, 05/29/2015 MENINGOCOCCAL VACCINES (B) Completed 04/22/2022, COVID-19 VACCINE Completed 06/28/2024, , 05/22/2022, Additional history exists HEPATITIS A VACCINES Aged Out No long er eligible based on patient's age to complete this topic HIB VACCINES Aged Out No longer eligi ble based on patient's age to complete this topic PNEUMOCOCCAL VACCINES (0-49 years) Aged Out No longer eligible based on patient's age to complete this topic Medical Devices Not on file Procedures Procedure Name Priority Date/Time Associated Diagnosis Comments POCT RAPID STREP A Routine 04/20/2025 11:12 AM EDT Acute upper respiratory infection POCT COVID-19 RT-PCR/INFLUENZA A & B/RSV CEPHEID Routine 04/20/2025 10:49 AM EDT Acute upper respiratory infection XR CHEST PA AND LATERAL 2 VIEWS Urgent/patient waiting 03/22/2025 10:18 AM EDT Acute bronchitis, unspecified organism from Last 3 Months Results * POCT Rapid Strep A (04/20/2025 11:12 AM EDT) [facility] Strep A, PCR Not Detected Not Detected [facility] 04/20/2025 11:1 2 AM EDT 04/20/2025 11:39 AM EDT Ashley Contreras CNP POINT OF CARE TEST ORDE RABJAS Final Result Performing Organization Address City/[facility]/ZIP Co de Phone Number [facility] [address] [address], [facility] [phone] * POCT COVID-19 RT-PCR/Influenza A & B/RSV (Cepheid) (04/20/2025 10:49 AM EDT) [facility] RSV PCR Negative Negative [facility] SARS-CoV-2 (COVID-19) Negative Negative [facility] POC Influenza A PCR Negative Negative [facility]OC Influenza B PCR Negative Negative [facility] 04/20/2025 10:4 9 AM EDT 04/20/2025 11:29 AM EDT Ashley Contreras [facility] POINT OF CARE TEST ORDE RABLES Final Result [facility] [address] [address], [facility] [phone] * XR CHEST PA AND LATERAL 2 VIEWS (03/22/2025 10:18 AM EDT) Anatomical Region Laterality Modality Chest Computed Radiogr aphy 03/22/2025 11:0 1 AM EDT Impressions 03/22/2025 11:02 AM EDT Normal chest. Narrative 03/22/2025 11:02 AM EDT XR CHEST PA AND LATERAL 2 VIEWS Referring clinician's provided indication for this examination in [facility]: Cough; pt states she has been coughing [...] clinician's provided indication for this examination in [facility]:Cough; pt states she has been coughing 8-9 months COMPARISON: XR CHEST PA AND LATERAL 2 VIEWS FINDINGS: Devices/Tubes/Lines: None. Lungs: Normal. The lungs are clear. No focal consolidation or pulmonaryedema. Pleura: Normal. No pleural effusion or pneumothorax. Heart/Mediastinum: Normal heart and mediastinum. Bones/Soft Tissues: Normal. No significant skeletal abnormality. IMPRESSION: Normal chest. Constanza Martinez DONATIONS ATTENDANT IMG XR CHEST Final Resul t from Last 3 Months Insurance [facility] [place] [address] [facility] [address] [address] [place] [address] [place] [address] [place] [address] [place] [address] [facility] Care Teams Professor Of Philosophy Relationship Specialty Start Date End Date Teresa Shaw MD [address] [place] [address] PCP - General Internal Medicine 04/20/25 Additional Source Comments The information contained in this document represents components of the legal health record. It is not the complete legal health record.[facility]
--- OUTSIDE RECORDS SUMMARY | 2025-05-04 15:28 | XMS_ITS | Encounter Summary ---
Author Organization [facility] Address [address] [place] [address] Phone Care Team Providers Care Lotus Notes Developer Name Role Phone Val Draper MD Primary Care Provider [phone]- [phone] Encounter Details Date Type Department Care Team (Late st Contact Info) Description 04/22/2017 Conversion Encounter [facility] [place] [address] [place] [address] Social History Tobacco Use Types Packs/Day Years [...] on filedocumented in this encounter Care Teams Lotus Notes Developer Relationship Specialty Start Date End Date Val Draper MD [address] [place] [address] PCP - General 04/16/17 07/12/24 documented as of this encounter
--- OUTSIDE RECORDS SUMMARY | 2025-05-04 15:28 | XMS_ITS | Encounter Summary ---
Author Organization [facility] Address [address] [place] [address] Phone Care Team Providers Care Steamfitter Apprentice Name Role Phone Val Draper MD Primary Care Provider +1- [phone] Encounter Details Date Type Department Care Team (Late st Contact Info) Description 04/05/2012 [place]ation [facility] [place] [address] [place], [place] [phone] Family Medicine, Physician [address] [place], [place] [address] Social History Tobacco Use Types Packs/Day Years [...] on filedocumented in this encounter Care Teams Steamfitter Apprentice Relationship Specialty Start Date End Date Val Draper MD [address] [place] [address] PCP - General 04/16/17 07/12/24 documented as of this encounter
--- OUTSIDE RECORDS SUMMARY | 2025-05-04 15:28 | XMS_ITS | Encounter Summary ---
Author Organization [facility] Address [address] [place] [phone] Phone Care Team Providers Care Healthcare Receptionist Name Role Phone Val Draper MD Primary Care Provider +1- [phone] Encounter Details Date Type Department Care Team (Late st Contact Info) Description 05/11/2013 Documentation [facility] [place] [address] [place], [place] [phone] Family Medicine, Physician [address] [place], [place] [address] Social History Tobacco Use Types Packs/Day Years [...] on filedocumented in this encounter Care Teams Healthcare Receptionist Relationship Specialty Start Date End Date Val Draper MD [address] [place] [address] PCP - General 04/16/17 07/12/24 documented as of this encounter
--- OUTSIDE RECORDS SUMMARY | 2025-05-04 15:28 | XMS_ITS | Encounter Summary ---
Author Organization [facility] Address [address] [place] [address] 41089 Phone Care Team Providers Care Bend Up Name Role Phone Val Draper MD Primary Care Provider +1- [phone] Encounter Details Date Type Department Care Team (Late st Contact Info) Description 11/09/2014 Documentation [facility] [place] Family Medicine [address] [place], [place] [id number] Family Medicine, Physician [address] [place], [place] 670661 Social History Tobacco Use Types Packs/Day Years [...] on filedocumented in this encounter Care Teams Bend Up Relationship Specialty Start Date End Date Val Draper MD [address] [place] [address] 44589 PCP - General 04/16/17 07/12/24 documented as of this encounter
--- OUTSIDE RECORDS SUMMARY | 2025-05-04 15:28 | XMS_ITS | Encounter Summary ---
Author Organization [facility] Address [address] [place] [address] 31082 Phone Care Team Providers Care Satellite Tv Technician Installer Name Role Phone Val Draper MD Primary Care Provider +1- [phone] Encounter Details Date Type Department Care Team (Late st Contact Info) Description 11/09/2014 Documentation [facility] [place] [address] [place], [place] [phone] Family Medicine, Physician [address] [place], [place] 569651 Social History Tobacco Use Types Packs/Day Years [...] on filedocumented in this encounter Care Teams Satellite Tv Technician Installer Relationship Specialty Start Date End Date Val Draper MD [address] [place] [address] 50321 PCP - General 04/16/17 07/12/24 documented as of this encounter
--- OUTSIDE RECORDS SUMMARY | 2025-05-04 15:28 | XMS_ITS | Patient Health Record ---
[facility] Organization [facility] [place] Address [address] [place] [address] Care Team Providers Care Log Cooker Name Role Phone Baron FOSTER, Val Primary Care Provider Mata Palomino Unavailable [phone] Gretta Zafar Unavailable [phone] Allergies Allergen (clinical drug ingredient) Drug/Non Drug [...] Negative Encounters Encounter Location Date Provider Diagnosis [facility] [address] [place] [address] 02/05/2025 Gretta Zafar Plan Of Treatment Pending Test Test Name Order Date X ray : Foot, left 3V 09/16/2020 X ray : Foot, right 3V 09/16/2020 Insurance Providers Payer Name Payer Address Payer Phone Subscriber Number Group Number Insured Name Patient Relationship to Insured Coverage Start Date Coverage End Date [facility] [id number] [place] [id number] [phone] [id number] Juan Blanco Child - Insured does not have Financial Responsibility (includes legally adopted child) Medical (General) History Medical History History ICD Code Broken bones Psoriasis/eczema Anxiety Surgical History Surgery Date(Month/Year)
--- OUTSIDE RECORDS SUMMARY | 2025-05-04 15:28 | XMS_ITS | Encounter Summary ---
Author Organization [facility] Address [address] [place] [address] Phone Care Team Providers Care Staking Engineer Name Role Phone Val Draper MD Primary Care Provider +1- [phone] Encounter Details Date Type Department Care Team (Late st Contact Info) Description 04/21/2013 Documentation [facility] [place] [address] [place], [place] [id number] Family Medicine, Physician [address] [place], [place] 052881 Social History Tobacco Use Types Packs/Day Years [...] on filedocumented in this encounter Care Teams Staking Engineer Relationship Specialty Start Date End Date Val Draper MD [address] [place] [address] 36414 PCP - General 04/16/17 07/12/24 documented as of this encounter
--- OUTSIDE RECORDS SUMMARY | 2025-05-04 15:28 | XMS_ITS | Encounter Summary ---
Author Organization [facility] Address [address] [place] [address] 61864 Phone Care Team Providers Care Lacquer Sizer Name Role Phone Val Draper MD Primary Care Provider +1- [phone] Encounter Details Date Type Department Care Team (Late st Contact Info) Description 05/22/2014 Documentation [facility] [place] Family Medicine [address] [place], [place] 9862793 Family Medicine, Physician [address] [place], [place] 261671 Social History Tobacco Use Types Packs/Day Years [...] on filedocumented in this encounter Care Teams Lacquer Sizer Relationship Specialty Start Date End Date Val Draper MD [address] [place] [address] 56551 PCP - General 04/16/17 07/12/24 documented as of this encounter
--- OUTSIDE RECORDS SUMMARY | 2025-05-04 15:28 | XMS_ITS | Encounter Summary ---
Author Organization [facility] Address [address] [place] [address] Phone Care Team Providers Care Golf Shoe Spike Assembler Name Role Phone Val Draper MD Primary Care Provider +1- [phone] Encounter Details Date Type Department Care Team (Late st Contact Info) Description 11/09/2014 Documentation [facility] [place] [address] [place], [place] 1898093 Family Medicine, Physician [address] [place], [place] 254991 Social History Tobacco Use Types Packs/Day Years [...] on filedocumented in this encounter Care Teams Golf Shoe Spike Assembler Relationship Specialty Start Date End Date Val Draper MD [address] [place] [address] 92825 PCP - General 04/16/17 07/12/24 documented as of this encounter
--- OUTSIDE RECORDS SUMMARY | 2025-05-04 15:28 | XMS_ITS | Encounter Summary ---
Author Organization [facility] Address [address] [place] [address] Phone Care Team Providers Care Senior Quality Analyst Name Role Phone Val Draper MD Primary Care Provider +1- [phone] Encounter Details Date Type Department Care Team (Late st Contact Info) Description 03/23/2011 Documentation [facility] [place] [address] [place], [place] [phone] Family Medicine, Physician [address] [place], [place] 433891 Social History Tobacco Use Types Packs/Day Years [...] on filedocumented in this encounter Care Teams Senior Quality Analyst Relationship Specialty Start Date End Date Val Draper MD [address] [place] [address] 97408 PCP - General 04/16/17 07/12/24 documented as of this encounter
--- OUTSIDE RECORDS SUMMARY | 2025-05-04 15:28 | XMS_ITS | Encounter Summary ---
Author Organization [facility] Address [address] [place] [address] Phone Care Team Providers Care Dancer Or Choreographer Name Role Phone Val Draper MD Primary Care Provider +1- [phone] Encounter Details Date Type Department Care Team (Late st Contact Info) Description 05/10/2013 Documentation [facility] [place] Family Medicine [address] [place], [place] [phone] Family Medicine, Physician [address] [place], [place] 751261 Social History Tobacco Use Types Packs/Day Years [...] on filedocumented in this encounter Care Teams Dancer Or Choreographer Relationship Specialty Start Date End Date Val Draper MD [address] [place] [address] 30105 PCP - General 04/16/17 07/12/24 documented as of this encounter
--- OUTSIDE RECORDS SUMMARY | 2025-05-04 15:28 | XMS_ITS | Encounter Summary ---
Author Organization [facility] Address [address] [place] [address] Phone Care Team Providers Care Vault Maker Name Role Phone Val Draper MD Primary Care Provider +1- [phone] Encounter Details Date Type Department Care Team (Late st Contact Info) Description 11/09/2014 Documentation [facility] [place] [address] [place], [place] 3902693 Family Medicine, Physician [address] [place], [place] 348951 Social History Tobacco Use Types Packs/Day Years [...] on filedocumented in this encounter Care Teams Vault Maker Relationship Specialty Start Date End Date Val Draper MD [address] [place] [address] 26683 PCP - General 04/16/17 07/12/24 documented as of this encounter
--- OUTSIDE RECORDS SUMMARY | 2025-05-04 15:28 | XMS_ITS | Encounter Summary ---
Author Organization [facility] Address [address] [place] [address] Phone Care Team Providers Care Desktop Administrator Name Role Phone Val Draper MD Primary Care Provider +1- [phone] Encounter Details Date Type Department Care Team (Late st Contact Info) Description 03/02/[address] [facility] [place] [address] [place], [place] 8603093 Family Medicine, Physician [address] [place], [place] 770551 Social History Tobacco Use Types Packs/Day Years [...] on filedocumented in this encounter Care Teams Desktop Administrator Relationship Specialty Start Date End Date Val Draper MD [address] [place] [address] 17216 PCP - General 04/16/17 07/12/24 documented as of this encounter
--- OUTSIDE RECORDS SUMMARY | 2025-05-04 15:28 | XMS_ITS | Encounter Summary ---
Author Organization [facility] Address [address] [place] [address] 53863 Phone Care Team Providers Care Process Coordinator Name Role Phone Val Draper MD Primary Care Provider +1- [phone] Encounter Details Date Type Department Care Team (Late st Contact Info) Description 11/09/2014 Documentation [facility] [place] Family Medicine [address] [place], [place] [phone] Family Medicine, Physician [address] [place], [place] 542101 Social History Tobacco Use Types Packs/Day Years [...] on filedocumented in this encounter Care Teams Process Coordinator Relationship Specialty Start Date End Date Val Draper MD [address] [place] [address] 30978 PCP - General 04/16/17 07/12/24 documented as of this encounter
--- OUTSIDE RECORDS SUMMARY | 2025-05-04 15:28 | XMS_ITS | Encounter Summary ---
Author Organization [facility] Address [address] [place] [address]339 Phone Care Team Providers Care Dentistry Professor Name Role Phone Val Draper MD Primary Care Provider +1- [phone] Encounter Details Date Type Department Care Team (Late st Contact Info) Description 06/12/2016 Documentation [facility] [place] Family Medicine [address] [place], [place] 3055593 Family Medicine, Physician [address] [place], [place] 889831 Social History Tobacco Use Types Packs/Day Years [...] on filedocumented in this encounter Care Teams Dentistry Professor Relationship Specialty Start Date End Date Val Draper MD [address] [place] [address] 90447 PCP - General 04/16/17 07/12/24 documented as of this encounter
--- OUTSIDE RECORDS SUMMARY | 2025-05-04 15:28 | XMS_ITS | Encounter Summary ---
Author Organization [facility] Address [address] [place] [address] 11480 Phone Care Team Providers Care Singing Messenger Name Role Phone Val Draper MD Primary Care Provider +1- [phone] Encounter Details Date Type Department Care Team (Late st Contact Info) Description 11/09/2014 Documentation [facility] [place] Family Medicine [address] [place], [place] 4997193 Family Medicine, Physician [address] [place], [place] 316201 Social History Tobacco Use Types Packs/Day Years [...] on filedocumented in this encounter Care Teams Singing Messenger Relationship Specialty Start Date End Date Val Draper MD [address] [place] [address] 17088 PCP - General 04/16/17 07/12/24 documented as of this encounter
--- OUTSIDE RECORDS SUMMARY | 2025-05-04 15:28 | XMS_ITS | Encounter Summary ---
Author Organization [facility] Address [address] [place] [address] 99771 Phone Care Team Providers Care Slasher Sawyer Name Role Phone Val Draepr MD Primary Care Provider +1- [phone] Encounter Details Date Type Department Care Team (Late st Contact Info) Description 05/22/2014 Documentation [facility] [place] [address] [place], [place] 9896993 Family Medicine, Physician [address] [place], [place] 268191 Social History Tobacco Use Types Packs/Day Years [...] on filedocumented in this encounter Care Teams Slasher Sawyer Relationship Specialty Start Date End Date Val Draper MD [address] [place] [address] 34383 PCP - General 04/16/17 07/12/24 documented as of this encounter
--- OUTSIDE RECORDS SUMMARY | 2025-05-04 15:28 | XMS_ITS | Encounter Summary ---
Author Organization [facility] Address [address] [place] [address] 7[address] Phone Care Team Providers Care Digging Machine Operator Name Role Phone Val Draper MD Primary Care Provider +1- [phone] Encounter Details Date Type Department Care Team (Late st Contact Info) Description 07/25/2012 Documentation [facility] [place] [address] [place], [place] 3023093 Family Medicine, Physician [address] [place], [place] 926141 Social History Tobacco Use Types Packs/Day Years [...] on filedocumented in this encounter Care Teams Digging Machine Operator Relationship Specialty Start Date End Date Val Draper MD [address] [place] [address] 29010 PCP - General 04/16/17 07/12/24 documented as of this encounter
--- OUTSIDE RECORDS SUMMARY | 2025-05-04 15:28 | XMS_ITS | Encounter Summary ---
Author Organization [facility] Address [address] [place] [address] 15429 Phone Care Team Providers Care Oil And Gas Superintendent Name Role Phone Val Draper MD Primary Care Provider +1- [phone] Encounter Details Date Type Department Care Team (Late st Contact Info) Description 11/09/2014 Documentation [facility] Family Medicine [address] [place], [place] 7586093 Family Medicine, Physician [address] [place], [place] 518751 Social History Tobacco Use Types Packs/Day Years [...] on filedocumented in this encounter Care Teams Oil And Gas Superintendent Relationship Specialty Start Date End Date Val Draper MD [address] [place] [address] 16913 PCP - General 04/16/17 07/12/24 documented as of this encounter
--- OUTSIDE RECORDS SUMMARY | 2025-05-04 15:28 | XMS_ITS | Clinical Summary ---
Author Organization [facility] Address [address] [place] [address] 72523 Phone Care Team Providers Care Mailroom Courier Name Role Phone Unavailable Primary Care Provider [...] of *CVA/Stroke, No family history of *Sudden /[place] under 55, , No family history of [...] Additional history exists Procedures * Due to [place] state law, this organization might not be sharing sensitive test results. Procedure Name Priority Date/Time Associated Diagnosis Comments CHLAMYDIA AND GONORRHEA, AMPLIFIED Routine 05/30/2024 9:48 AM EDT Screening examination for bacterial and spirochetal disease from Last 3 Months or Most Recently Relevant to Health Maintenance Results * Due to [place] state law, this organization might not be sharing sensitive test results. * Chlamydia and Gonorrhoea, Amplified (Urine) (05/30/2024 9:48 AM EDT) C trach JINNY Negative Negative [facility] N gonorrhoeae JINNY Negative Negative [facility] Urine (Urine, Random (not clean void)) 05/30/2024 9:48 AM EDT 05/30/2024 Comment:UR Narrative [facility] - 06/01/2024 12:06 AM EDT Performed at: [address] - [address] [place], [address], [place], [place] [id number] Blog Writer: Fadi Stiles MD, Phone: [phone] us Val Draper MD LAB MICROBIOLOGY - GENERAL ORDERABLES Final Result [facility] [address] [place] [address] from Last 3 Months or Most Recently Relevant to Health Maintenance
--- OUTSIDE RECORDS SUMMARY | 2025-05-04 15:28 | XMS_ITS | Encounter Summary ---
Author Organization [facility] Address [address] [place] [address]39 Phone Care Team Providers Care Riding Silks Custodian Name Role Phone Val Draper MD Primary Care Provider +1- [phone] Encounter Details Date Type Department Care Team (Late st Contact Info) Description 11/09/2014 Documentation [facility] [place] [address] [place], [place] 9561493 Family Medicine, Physician [address] [place], [place] 141391 Social History Tobacco Use Types Packs/Day Years [...] on filedocumented in this encounter Care Teams Riding Silks Custodian Relationship Specialty Start Date End Date Val Draper MD [address] [place] [address] 51733 PCP - General 04/16/17 07/12/24 documented as of this encounter
--- OUTSIDE RECORDS SUMMARY | 2025-05-04 15:28 | XMS_ITS | Encounter Summary ---
Author Organization [facility] Address [address] [place] [address]306 Phone Care Team Providers Care Fiber Picker Name Role Phone Val Draper MD Primary Care Provider +1- [phone] Encounter Details Date Type Department Care Team (Late st Contact Info) Description 01/14/2017 Documentation [facility] [place] Family Medicine [address] [place], [place] 9256993 Family Medicine, Physician [address] [place], [place] 111481 Social History Tobacco Use Types Packs/Day Years [...] on filedocumented in this encounter Care Teams Fiber Picker Relationship Specialty Start Date End Date Val Draper MD [address] [place] [address] 65027 PCP - General 04/16/17 07/12/24 documented as of this encounter
--- OUTSIDE RECORDS SUMMARY | 2025-05-04 15:28 | XMS_ITS | Encounter Summary ---
Author Organization [facility] Address [address] [place] [address]355 Phone Care Team Providers Care Coal Miner Name Role Phone Val Draper MD Primary Care Provider +1- [phone] Encounter Details Date Type Department Care Team (Late st Contact Info) Description 04/05/2012 Documentation [facility] [place] [address] [place], [place] 4362593 Family Medicine, Physician [address] [place], [place] 197941 Social History Tobacco Use Types Packs/Day Years [...] on filedocumented in this encounter Care Teams Coal Miner Relationship Specialty Start Date End Date Val Draper MD [address] [place] [address] 36080 PCP - General 04/16/17 07/12/24 documented as of this encounter
--- OUTSIDE RECORDS SUMMARY | 2025-05-04 15:28 | XMS_ITS | Encounter Summary ---
Author Organization [facility] Address [address] [place] [address] 17594 Phone Care Team Providers Care English Language Learner Teacher Name Role Phone Val Draper MD Primary Care Provider +1- [phone] Encounter Details Date Type Department Care Team (Late st Contact Info) Description 05/30/2015 Documentation [facility] [place] [address] [place], [place] 4937293 Family Medicine, Physician [address] [place], [place] 246661 Social History Tobacco Use Types Packs/Day Years [...] on filedocumented in this encounter Care Teams English Language Learner Teacher Relationship Specialty Start Date End Date Val Draper MD [address] [place] [address] 79017 PCP - General 04/16/17 07/12/24 documented as of this encounter
== END 2025-05-04 15:49 | disposition home or self-care (01) ==
LOC: HO.HMCFM 15:26
PROVIDERS: PCP Internal Medicine; Visit Provider Internal Medicine
DX: F33.41 Major depressive disorder, recurrent, in partial remission (principal); F41.9 Anxiety disorder, unspecified

== ENCOUNTER 2025-06-12 13:40 | Outpatient (REF) | payer BC, SELFPAY ==
--- OUTSIDE RECORDS SUMMARY | 2021-11-18 15:25 | XMS_ITS | Encounter Summary ---
Author Organization [facility] Address [address] [facility] [address] [place] [address] Phone Care Team Providers Care Infection Control Nurse Name Role Phone Val Draper MD Primary Care Provid er Encounter Details Date Type Department Care Team (Late st Contact Info) Description 11/18/2021 3:25 PM EDT Hospital Encounter [facility] [address] [place] [address] Constanza Martinez FNP [address] [place] [address] [place] [address] [email or web address] Social History Tobacco Use Types Packs/Day Years [...] acute displaced fracture or dislocation. Constanza Martinez BREAD RACKER IMG XR UPPER EXTREMITY Kristi l Result documented in this encounter Visit Diagnoses Not on filedocumented in this encounter Care Teams Infection Control Nurse Relationship Specialty Start Date End Date Val Draper MD [address] [place] [address] GERALDO Olivares [address] PCP - General Pediatrics 11/18/21 08/14/24 documented as of this encounter Additional Source Comments The information contained in this document represents components of the legal health record. It is not the complete legal health record.[facility]
--- OUTSIDE RECORDS SUMMARY | 2024-08-15 09:57 | XMS_ITS | Encounter Summary ---
Author Organization [facility] Address [address] [employer] [facility] [address] [place] [address] Phone Care Team Providers Care Forest Fire Equipment Operator Name Role Phone Teresa Shaw MD Primary Care Provider + [phone] Encounter Details Date Type Department Care Team (Late st Contact Info) Description 08/15/2024 8:57 AM EST Hospital Encounter [facility] [address] [place] [address] Constanza Martinez FNP [address] [place] [address] [email or web address] Social History Tobacco Use Types Packs/Day [...] clinician's provided indication for this examination in [facility]: Cough; COUGH AND SOB FOR 2 MONTHS COMPARISON: None. FINDINGS: Devices/Tubes/Lines: None. Lungs: No focal consolidation or pulmonary edema. Pleura: No pleural effusion or pneumothorax. Heart/Mediastinum: Normal heart and mediastinum. Bones/Soft Tissues: No significant skeletal abnormality. Procedure Note Erika Urbano MD - 08/15/2024 XR CHEST PA AND LATERAL 2 VIEWS Referring clinician's provided indication for this examination in [facility]:Cough; COUGH AND SOB FOR 2 MONTHS COMPARISON: None. FINDINGS: Devices/Tubes/Lines: None. Lungs: No focal consolidation or pulmonary edema. Pleura: No pleural effusion or pneumothorax. Heart/Mediastinum: Normal heart and mediastinum. Bones/Soft Tissues: No significant skeletal abnormality. IMPRESSION: No focal consolidation. Constanza Martinez CITIZENSHIP INSTRUCTOR IMG XR CHEST Final Resul t documented in this encounter Visit Diagnoses Not on filedocumented in this encounter Care Teams Forest Fire Equipment Operator Relationship Specialty Start Date End Date Teresa Shaw MD PCP - General Internal Medicine 08/15/24 03/21/25 documented as of this encounter Additional Source Comments The information contained in this document represents components of the legal health record. It is not the complete legal health record.[facility]
--- OUTSIDE RECORDS SUMMARY | 2025-03-22 10:14 | XMS_ITS | Encounter Summary ---
Author Organization [facility] Address [address] [facility] [address] [place] [address] Phone Care Team Providers Care Digital Media Analyst Name Role Phone Val Draper MD Primary Care Provid er Encounter Details Date Type Department Care Team (Late st Contact Info) Description 03/22/2025 10:14 AM EDT Hospital Encounter [facility] [address] [place] [address] Constanza Martinez FNP [address] [place] [address] [place] [address] [email or web address] Social History Tobacco Use Types [...] skeletal abnormality. IMPRESSION: Normal chest. Constanza Martinez COUNTER INTELLIGENCE TECHNICIAN IMG XR CHEST Final Resul t documented in this encounter Visit Diagnoses Not on filedocumented in this encounter Care Teams Digital Media Analyst Relationship Specialty Start Date End Date Val Draper MD [address] [place] [address] GERALDO Olivares [address] PCP - General Pediatrics 03/22/25 04/19/25 documented as of this encounter Additional Source Comments The information contained in this document represents components of the legal health record. It is not the complete legal health record.[facility]
--- NOTE | 2025-06-12 13:57 | PFT_ITS ---
Flows: FEV1: 127 % of predicted at 4.38 L FVC: 134 % of predicted at 5.29 L FEV1/FVC: 83 % Bronchodilator response: Absent Volumes: Total lung capacity: 124 % of predicted at 6.34 L Residual volume: 97 % of predicted at 1.07 L Slow vital capacity: 135 % of predicted at 5.26 L Expiratory reserve volume: 115 % of predicted at 1.50 L Diffusion capacity: Normal Impression: No obstructive or restrictive ventilatory defect. No bronchodilator response. Increased total lung capacity suggests hyperinflation. MTDD
[2025-06-12 14:36] VITALS: PULSE 87; O2SAT 99
--- OUTSIDE RECORDS SUMMARY | 2025-06-12 16:51 | XMS_ITS | Encounter Summary ---
Author Organization [facility] Address [address] [place] [address] 76034 Phone Care Team Providers Care Vertica Architect Name Role Phone Val Draper MD Primary Care Provider +1- [phone] Encounter Details Date Type Department Care Team (Late st Contact Info) Description 05/30/2015 Documentation [facility] [place] Family Medicine [address] [place], [place] 4601493 Family Medicine, Physician [address] [place], [place] 714741 Social History Tobacco Use Types Packs/Day Years [...] on filedocumented in this encounter Care Teams Vertica Architect Relationship Specialty Start Date End Date Val Draper MD [address] [place] [address] 61392 PCP - General 04/16/17 07/12/24 documented as of this encounter
--- OUTSIDE RECORDS SUMMARY | 2025-06-12 16:51 | XMS_ITS | Encounter Summary ---
Author Organization [facility] Address [address] [place] [address] 407[address] Phone Care Team Providers Care Time Lock Expert Name Role Phone Val Draper MD Primary Care Provider +1- [phone] Encounter Details Date Type Department Care Team (Late st Contact Info) Description 04/05/2012 Documentation [facility] [place] Family Medicine [address] [place], [place] 1655593 Family Medicine, Physician [address] [place], [place] 595151 Social History Tobacco Use Types Packs/Day Years [...] on filedocumented in this encounter Care Teams Time Lock Expert Relationship Specialty Start Date End Date Val Draper MD [address] [place] [address] 91543 PCP - General 04/16/17 07/12/24 documented as of this encounter
--- OUTSIDE RECORDS SUMMARY | 2025-06-12 16:51 | XMS_ITS | Encounter Summary ---
Author Organization [facility] Address [address] [place] [address] Phone Care Team Providers Care Retail Project Merchandiser Name Role Phone Val Draper MD Primary Care Provider +1- [phone] Encounter Details Date Type Department Care Team (Late st Contact Info) Description 06/12/2016 Documentation [facility] [place] Family [place] [address] [place], [place] 5995593 Family Medicine, Physician [address] [place], [place] 043541 Social History Tobacco Use Types Packs/Day Years [...] on filedocumented in this encounter Care Teams Retail Project Merchandiser Relationship Specialty Start Date End Date Val Draper MD [address] [place] [address] 00070 PCP - General 04/16/17 07/12/24 documented as of this encounter
--- OUTSIDE RECORDS SUMMARY | 2025-06-12 16:51 | XMS_ITS | Encounter Summary ---
Author Organization [facility] Address [address] [place] [address] 8[address]15 Phone Care Team Providers Care Heating Unit Mechanic Name Role Phone Val Draper MD Primary Care Provider +1- [phone] Encounter Details Date Type Department Care Team (Late st Contact Info) Description 11/09/2014 Documentation [facility] [place] [address] [place], [place] 1937693 Family Medicine, Physician [address] [place], [place] 061621 Social History Tobacco Use Types Packs/Day Years [...] on filedocumented in this encounter Care Teams Heating Unit Mechanic Relationship Specialty Start Date End Date Val Draper MD [address] [place] [address] 85075 PCP - General 04/16/17 07/12/24 documented as of this encounter
--- OUTSIDE RECORDS SUMMARY | 2025-06-12 16:51 | XMS_ITS | Encounter Summary ---
Author Organization [facility] Address [address] [place] [address] Phone Care Team Providers Care Composite Science Teacher Name Role Phone Val Draper MD Primary Care Provider +1- [phone] Encounter Details Date Type Department Care Team (Late st Contact Info) Description 05/22/2014 Documentation [facility] Family Medicine [address] [place], [place] [phone] Family Medicine, Physician [address] [place], [place] 847511 Social History Tobacco Use Types Packs/Day Years [...] on filedocumented in this encounter Care Teams Composite Science Teacher Relationship Specialty Start Date End Date Val Draper MD [address] [place] [address] 49717 PCP - General 04/16/17 07/12/24 documented as of this encounter
--- OUTSIDE RECORDS SUMMARY | 2025-06-12 16:51 | XMS_ITS | Encounter Summary ---
Author Organization [facility] Address [address] [place] [address] Phone Care Team Providers Care Courtroom Deputy Or Calendar Clerk Name Role Phone Val Draper MD Primary Care Provider +1- [phone] Encounter Details Date Type Department Care Team (Late st Contact Info) Description 11/09/2014 Documentation [facility] [place] [address] [place], [place] [phone] Family Medicine, Physician [address] [place], [place] 951771 Social History Tobacco Use Types Packs/Day Years [...] on filedocumented in this encounter Care Teams Courtroom Deputy Or Calendar Clerk Relationship Specialty Start Date End Date Val Draper MD [address] [place] [address] 28753 PCP - General 04/16/17 07/12/24 documented as of this encounter
--- OUTSIDE RECORDS SUMMARY | 2025-06-12 16:51 | XMS_ITS | Encounter Summary ---
Author Organization [facility] Address [address] [place] [address] 33962 Phone Care Team Providers Care Sales Officer Name Role Phone Val Draper MD Primary Care Provider +1- [phone] Encounter Details Date Type Department Care Team (Late st Contact Info) Description 03/23/2011 Documentation [facility] [place] Family Medicine [address] [place], [place] [phone] Family Medicine, Physician [address] [place], [place] 953811 Social History Tobacco Use Types Packs/Day Years [...] on filedocumented in this encounter Care Teams Sales Officer Relationship Specialty Start Date End Date Val Draper MD [address] [place] [address] 38074 PCP - General 04/16/17 07/12/24 documented as of this encounter
--- OUTSIDE RECORDS SUMMARY | 2025-06-12 16:51 | XMS_ITS | Encounter Summary ---
Author Organization [facility] Address [address] [place] [address] 46983 Phone Care Team Providers Care Disease Education Specialist Name Role Phone Val Draper MD Primary Care Provider +1- [phone] Encounter Details Date Type Department Care Team (Late st Contact Info) Description 07/25/2012 Documentation [facility] [place] [address] [place], [place] [phone] Family Medicine, Physician [address] [place], [place] 626851 Social History Tobacco Use Types Packs/Day Years [...] on filedocumented in this encounter Care Teams Disease Education Specialist Relationship Specialty Start Date End Date Val Draper MD [address] [place] [address] 48637 PCP - General 04/16/17 07/12/24 documented as of this encounter
--- OUTSIDE RECORDS SUMMARY | 2025-06-12 16:51 | XMS_ITS | Encounter Summary ---
Author Organization [facility] Address [address] [place] [address] 41683 Phone Care Team Providers Care Position Classifier Name Role Phone Val Draper MD Primary Care Provider +1- [phone] Encounter Details Date Type Department Care Team (Late st Contact Info) Description 11/09/2014 Documentation [facility] [place] Family Medicine [address] [place], [place] [phone] Family Medicine, Physician [address] [place], [place] 119921 Social History Tobacco Use Types Packs/Day Years [...] on filedocumented in this encounter Care Teams Position Classifier Relationship Specialty Start Date End Date Val Draper MD [address] [place] [address] 59034 PCP - General 04/16/17 07/12/24 documented as of this encounter
--- OUTSIDE RECORDS SUMMARY | 2025-06-12 16:51 | XMS_ITS | Encounter Summary ---
Author Organization [facility] Address [address] [place] [address] Phone Care Team Providers Care Community Health Advocate Name Role Phone Val Draper MD Primary Care Provider +1- [phone] Encounter Details Date Type Department Care Team (Late st Contact Info) Description 04/05/2012 Documentation [facility] [place] [address] [place], [place] [phone] Family Medicine, Physician [address] [place], [place] 633241 Social History Tobacco Use Types Packs/Day Years [...] filedocumented in this encounter Care Teams Community Health Advocate Relationship Specialty Start Date End Date Val Draper MD [address] [place] [address] 64180 PCP - General 04/16/17 07/12/24 documented as of this encounter
--- OUTSIDE RECORDS SUMMARY | 2025-06-12 16:51 | XMS_ITS | Clinical Summary ---
Author Organization [facility] Address [address] [place] [address] Phone Care Team Providers Care Powder Carrier Name Role Phone Unavailable Primary Care Provider [...] of *CVA/Stroke, No family history of *Sudden /PR under 55, , No family history of [...] 2025 06/28/20, 06/05/2023, 05/22/2022, Additional history exists COVID-19 Vaccine (7 - 2024-2 6 season) 2025 06/28/2024, 06/05/2023, 05/22/2022, Additional history exists DTaP,Tdap,and Td [...] 015 Men B Vaccine Completed 04/22/2022, 09/15/2021 Procedures * Due to [place] state law, this organization might not be sharing sensitive test results. Procedure Name Priority Date/Time Associated Diagnosis Comments CHLAMYDIA AND GONORRHEA, AMPLIFIED Routine 05/30/2024 9:48 AM EDT Screening examination for bacterial and spirochetal disease from Last 3 Months or Most Recently Relevant to Health Maintenance Results * Due to [place] state law, this organization might not be sharing sensitive test results. * Chlamydia and Gonorrhoea, Amplified (Urine) (05/30/2024 9:48 AM EDT) C trach JINNY Negative Negative [facility] N gonorrhoeae JINNY Negative Negative [facility] Urine (Urine, Random (not clean void)) 05/30/2024 9:48 AM EDT 05/30/2024 Comment:UR Narrative [facility] - 06/01/2024 12:06 AM EDT Performed at: 01 - [facility], [address], [place], [place] [id number] Stock Sheets Cleaner Inspector: Fadi Stiles MD, Phone: [phone] us Val Draper MD LAB MICROBIOLOGY - GENERAL ORDERABLES Final Result [facility] [address] [place] [address] from Last 3 Months or Most Recently Relevant to Health Maintenance
--- OUTSIDE RECORDS SUMMARY | 2025-06-12 16:51 | XMS_ITS | Encounter Summary ---
Author Organization [facility] Address [address] [place] [address] 11298 Phone Care Team Providers Care Life Educator Name Role Phone Val Draper MD Primary Care Provider +1- [phone] Encounter Details Date Type Department Care Team (Late st Contact Info) Description 11/09/2014 Documentation [facility] [place] Family Medicine [address] [place], [place] [phone] Family Medicine, Physician [address] [place], [place] 734481 Social History Tobacco Use Types Packs/Day Years [...] on filedocumented in this encounter Care Teams Life Educator Relationship Specialty Start Date End Date Val Draper MD [address] [place] [address] 46873 PCP - General 04/16/17 07/12/24 documented as of this encounter
--- OUTSIDE RECORDS SUMMARY | 2025-06-12 16:51 | XMS_ITS | Encounter Summary ---
Author Organization [facility] Address [address] [place] [address] 41341 Phone Care Team Providers Care Can Filler Name Role Phone Val Draper MD Primary Care Provider +1- [phone] Encounter Details Date Type Department Care Team (Late st Contact Info) Description 05/22/2014 Documentation [facility] [place] [address] [place], [place] [phone] Family Medicine, Physician [address] [place], [place] 939411 Social History Tobacco Use Types Packs/Day Years [...] on filedocumented in this encounter Care Teams Can Filler Relationship Specialty Start Date End Date Val Draper MD [address] [place] [address] 45395 PCP - General 04/16/17 07/12/24 documented as of this encounter
--- OUTSIDE RECORDS SUMMARY | 2025-06-12 16:51 | XMS_ITS | Encounter Summary ---
Author Organization [facility] Address [address] [place] [address] 18476 Phone Care Team Providers Care Senior Marketing Data Analyst Name Role Phone Val Draper MD Primary Care Provider +1- [phone] Encounter Details Date Type Department Care Team (Late st Contact Info) Description 11/09/2014 Documentation [facility] [place] [address] [place], [place] [phone] Family Medicine, Physician [address] [place], [place] 353001 Social History Tobacco Use Types Packs/Day Years [...] filedocumented in this encounter Care Teams Senior Marketing Data Analyst Relationship Specialty Start Date End Date Val Draper MD [address] [place] [address] 29857 PCP - General 04/16/17 07/12/24 documented as of this encounter
--- OUTSIDE RECORDS SUMMARY | 2025-06-12 16:51 | XMS_ITS | Encounter Summary ---
Author Organization [facility] Address [address] [place] [address] 01432 Phone Care Team Providers Care Med Dir Name Role Phone Val Draper MD Primary Care Provider +1- [phone] Encounter Details Date Type Department Care Team (Late st Contact Info) Description 03/02/2017 Documentation [facility] [place] Family Medicine [address] [place], [place] [phone] Family Medicine, Physician [address] [place], [place] 063791 Social History Tobacco Use Types Packs/Day Years [...] on filedocumented in this encounter Care Teams Med Dir Relationship Specialty Start Date End Date Val Draper MD [address] [place] [address] 13390 PCP - General 04/16/17 07/12/24 documented as of this encounter
--- OUTSIDE RECORDS SUMMARY | 2025-06-12 16:51 | XMS_ITS | Encounter Summary ---
Author Organization [facility] Address [address] [place] [address] 46684 Phone Care Team Providers Care Kettle Firer Name Role Phone Val Draper MD Primary Care Provider +1- [phone] Encounter Details Date Type Department Care Team (Late st Contact Info) Description 04/21/2013 Documentation [facility] [place] Medicine [address] [place], [place] [phone] Family Medicine, Physician [address] [place], [place] 301381 Social History Tobacco Use Types Packs/Day Years [...] on filedocumented in this encounter Care Teams Kettle Firer Relationship Specialty Start Date End Date Val Draper MD [address] [place] [address] 62750 PCP - General 04/16/17 07/12/24 documented as of this encounter
--- OUTSIDE RECORDS SUMMARY | 2025-06-12 16:51 | XMS_ITS | Encounter Summary ---
Author Organization [facility] Address [address] [place] [address] 88919 Phone Care Team Providers Care Gas Maker Helper Name Role Phone Val Draper MD Primary Care Provider +1- [phone] Encounter Details Date Type Department Care Team (Late st Contact Info) Description 11/09/2014 Documentation [facility] [place] [address] [place], [place] [phone] Family Medicine, Physician [address] [place], [place] 758631 Social History Tobacco Use Types Packs/Day Years [...] on filedocumented in this encounter Care Teams Gas Maker Helper Relationship Specialty Start Date End Date Val Draper MD [address] [place] [address] 77538 PCP - General 04/16/17 07/12/24 documented as of this encounter
--- OUTSIDE RECORDS SUMMARY | 2025-06-12 16:51 | XMS_ITS | Encounter Summary ---
Author Organization [facility] Address [address] [place] [address] 91297 Phone Care Team Providers Care Medical Coding Specialist Name Role Phone Val Draper MD Primary Care Provider +1- [phone] Encounter Details Date Type Department Care Team (Late st Contact Info) Description 05/30/2015 Documentation [facility] [place] [address] [place], [place] [phone] Family Medicine, Physician [address] [place], [place] 397361 Social History Tobacco Use Types Packs/Day Years [...] on filedocumented in this encounter Care Teams Medical Coding Specialist Relationship Specialty Start Date End Date Val Draper MD [address] [place] [address] 29272 PCP - General 04/16/17 07/12/24 documented as of this encounter
--- OUTSIDE RECORDS SUMMARY | 2025-06-12 16:51 | XMS_ITS | Clinical Summary ---
Author Organization [facility] Address [address] [facility] [address] [place] [address] 32871 Phone Care Team Providers Care Motor Polarizer Name Role Phone Teresa Shaw MD Primary Care Provider Allergies Active Allergy Reactions Criticality Noted Date Comments Amoxicillin Hives,Swelling 09/22/2019 See photos 09/22/19 Other Reaction(s): Swelling,hives Penicillin 08/15/2024 Other Reaction(s): Swelling/ joints Medications hydrocortisone valerate 0.2 % cream APPLY TOPICALLY TO THE AFFECTED AREA TWICE DAILY NEEDED. DO NOT USE FOR MORE THAN 2 WEEKS EACH MONTH 4 Active ketoconazole (NIZORAL) 1 % shampoo Active albuterol (PROAIR HFA) 90 mcg/actuation inhaler Inhale 2 puffs into the lungs every 4 (four) hours as needed for wheezing. 18 g 5 Active Additional Information Patient not taking.Reported on 05/10/2025 benzonatate (TESSALON) 100 MG capsule Take 2 capsules (200 mg total) by mouth 3 (three) times a day as needed for cough. 21 capsule 5 Active Additional Information Patient not taking.Reported on 05/10/2025 inhaler spacing device (AEROCHAMBER,BR EATHERITE) Spcr Inhale 1 each into the lungs every 4 (four) hours as needed (with inhaler). 1 each 5 Active Additional Information Patient not taking.Reported on 05/10/2025 albuterol (PROAIR HFA) 90 mcg/actuation inhaler Inhale 2 puffs into the lungs every 4 (four) hours as needed for wheezing. 18 g Active Additional Information Patient not taking.Reported on 05/10/2025 buPROPion (WELLBUTRIN XL) 150 MG ER 24 hr tablet Take 150 mg by mouth every morning. Active clotrimazole-be tamethasone (LOTRISONE) cream APPLY TOPICALLY TO THE AFFECTED AREA TWICE DAILY FOR 4 WEEKS NEEDED FOR RASH Active TRI-LO-SAMM 0.18/0.215/0.25 mg-0.025 mg Tab Take 1 tablet by mouth every morning. Active terbinafine HCL (LAMISIL) 250 mg tablet Take 1 tablet by mouth every morning. Active Active Problems Problem Noted Date Diagnosed [...] Encounters Date Type Department Care Team Description 05/10/2025 12:00 PM EDT Office Visit [facility] at [address] [address] Constanza Martinez FNP Allergic dermatitis (Primary Dx) 04/20/2025 10:50 AM EDT Office Visit [facility] at [address] [address] Ashley Contreras, JAYDEN Acute upper respiratory infection (Primary Dx) 03/22/2025 10:14 AM EDT Hospital Encounter [facility] [address] [place] [address] Constanza Martinez FNP 03/22/2025 9:40 AM EDT Office Visit [facility] at [address] [address] Constanza Martinez, CAR GROOMER Acute bronchitis, unspecified organism (Primary Dx); Allergic rhinitis, unspecified seasonality, unspecified trigger from Last 3 Months Immunizations Immunization Administration [...] Sign Reading Time Taken Comments Blood Pressure 124/68 05/10/2025 11:51 AM EDT Pulse 97 05/10/2025 11:51 AM EDT Temperature 36.3 C (97.3 F) 05/10/2025 11:51 AM EDT Respiratory Rate 18 05/10/2025 11:51 AM EDT Oxygen Saturation 99% 05/10/2025 11:51 AM EDT Inhaled Oxygen Concentration - - [...] SCREENING (18-65 YEARS) 02/05/2022 PAP SMEAR 02/05/2025 INFLUENZA VACCINE (#1) 2025 , 06/05/2023, 05/22/2022, Additional history exists Adult Td,Tdap Booster 05/29/2025 05/29/2015 SMOKING Hx and SMOKELESS TOBACCO SCREENING 05/10/2026 05/10/2025 MMR VACCINES Completed 02/22/2008, 02/16/2005 HPV VACCINES [...] Rapid Strep A (04/20/2025 11:12 AM EDT) Pathologist [facility] Strep A, PCR Not Detected Not Detected C [facility] LEFT HAND 04/20/2025 11:1 2 AM EDT 04/20/2025 11:39 AM EDT Ashley Contreras [facility] POINT OF CARE TEST MELANIE POST Final Result [facility] [address] [address], [facility] [phone] * POCT COVID-19 RT-PCR/Influenza A & B/RSV (Cepheid) (04/20/2025 10:49 AM EDT) RSV PCR Negative Negative [facility] LEFT HAND SARS-CoV-2 (COVID-19) Negative Negative [facility] LEFT HAND POC Influenza A PCR Negative Negative [facility] LEFT HAND POC Influenza B PCR Negative Negative [facility] LEFT HAND 04/20/2025 10:4 9 AM EDT 04/20/2025 11:29 AM EDT Ashley Contreras [facility] POINT OF CARE TEST MELANIE POST Final Result [facility] [place] [facility] AT [address] [address], [facility] [phone] * XR CHEST PA AND LATERAL 2 VIEWS (03/22/2025 10:18 AM EDT) Anatomical Region Laterality Modality Chest Computed Radiogr aphy 03/22/2025 11:0 1 AM EDT Impressions 03/22/2025 11:02 AM EDT Normal chest. Narrative 03/22/2025 11:02 AM EDT XR CHEST PA AND LATERAL 2 VIEWS Referring clinician's provided indication for this examination in [facility]: Cough; pt states she has been coughing [...] clinician's provided indication for this examination in [facility]:Cough; pt states she has been coughing 8-9 months COMPARISON: XR CHEST PA AND LATERAL 2 VIEWS FINDINGS: Devices/Tubes/Lines: None. Lungs: Normal. The lungs are clear. No focal consolidation or pulmonaryedema. Pleura: Normal. No pleural effusion or pneumothorax. Heart/Mediastinum: Normal heart and mediastinum. Bones/Soft Tissues: Normal. No significant skeletal abnormality. IMPRESSION: Normal chest. us Constanza Martinez CAR GROOMER IMG XR CHEST Final Resul t from Last 3 Months Insurance [facility] [place] [place] [address] [place] [address] [place] [address] [place] [address] [place] [address] [facility] Member Subscriber Plan / Payer (Ef fective 2004-Present) Name:Danielle Beverly Relation to Subscriber:Spouse Name:JUSTIN BEVERLY Date of :1972 (Home) Address: [address] [address] Payer ID:[id number] (NAIC) Type:HMO Address: [address] [place], [place] Care Teams Motor Polarizer Relationship Specialty Start Date End Date Teresa Shaw MD [address] [place] [address] PCP - General Internal Medicine 04/20/25 Additional Source Comments The information contained in this document represents components of the legal health record. It is not the complete legal health record.[facility]
--- OUTSIDE RECORDS SUMMARY | 2025-06-12 16:51 | XMS_ITS | Encounter Summary ---
Author Organization [facility] Address [address] [place] [address]321 Phone Care Team Providers Care Diesel Powerplant Mechanic Name Role Phone Val Draper MD Primary Care Provider +1- [phone] Encounter Details Date Type Department Care Team (Late st Contact Info) Description 11/09/2014 Documentation [facility] [place] Family Medicine [address] [place], [place] [phone] Family Medicine, Physician [address] [place], [place] 281081 Social History Tobacco Use Types Packs/Day Years [...] on filedocumented in this encounter Care Teams Diesel Powerplant Mechanic Relationship Specialty Start Date End Date Val Draper MD [address] [place] [address] PCP - General 04/16/17 07/12/24 documented as of this encounter
--- OUTSIDE RECORDS SUMMARY | 2025-06-12 16:51 | XMS_ITS | Encounter Summary ---
Author Organization [facility] Address [address] [place] [address]604 Phone Care Team Providers Care Grease Packer Name Role Phone Val Draper MD Primary Care Provider +1- [phone] Encounter Details Date Type Department Care Team (Late st Contact Info) Description 05/10/2013 Documentation [facility] [place] Family Medicine [address] [place], [place] [phone] Family Medicine, Physician [address] [place], [place] [address] Social History Tobacco Use Types Packs/Day Years [...] on filedocumented in this encounter Care Teams Grease Packer Relationship Specialty Start Date End Date Val Draper MD [address] [place] [address] 197[address] PCP - General 04/16/17 07/12/24 documented as of this encounter
--- OUTSIDE RECORDS SUMMARY | 2025-06-12 16:51 | XMS_ITS | Patient Health Record ---
[facility] [place] Address [address] [place] [address] Care Team Providers Care Tobacco Stripping Machine Operator Name Role Phone Baron FOSTER, Val Primary Care Provider Unav Mata Paul Unavailable [phone] Gretta Zafar Unavailable [phone] Allergies Allergen (clinical drug ingredient) Drug/Non Drug [...] Negative Encounters Encounter Location Date Provider Diagnosis [facility] [address] [place] [address] 02/05/2025 Gretta Zafar Plan Of Treatment Pending Test Test Name Order Date X ray : Foot, left 3V 09/16/2020 X ray : Foot, right 3V 09/16/2020 Insurance Providers Payer Name Payer Address Payer Phone Subscriber Number Group Number Insured Name Patient Relationship to Insured Coverage Start Date Coverage End Date Ada All Others [address] [place] [address] [phone] [id number] Juan Blanco Child - Insured does not have Financial Responsibility (includes legally adopted child) Medical (General) History Medical History History ICD Code Broken bones Psoriasis/eczema Anxiety Surgical History Surgery Date(Month/Year)
--- OUTSIDE RECORDS SUMMARY | 2025-06-12 16:51 | XMS_ITS | Encounter Summary ---
Author Organization [facility] Address [address] [place] [address] Phone Care Team Providers Care Senior Painter Name Role Phone Val Draper MD Primary Care Provider +1- [phone] Encounter Details Date Type Department Care Team (Late st Contact Info) Description 05/22/2014 Documentation [facility] [place] Family Medicine [address] [place], [place] [phone] Family Medicine, Physician [address] [place], [place] 383491 Social History Tobacco Use Types Packs/Day Years [...] filedocumented in this encounter Care Teams Senior Painter Relationship Specialty Start Date End Date Val Draper MD [address] [place] [address] PCP - General 04/16/17 07/12/24 documented as of this encounter
--- OUTSIDE RECORDS SUMMARY | 2025-06-12 16:51 | XMS_ITS | Encounter Summary ---
Author Organization [facility] Address [address] [place] [address] Phone Care Team Providers Care Track Announcer Name Role Phone Val Draper MD Primary Care Provider +1- [phone] Encounter Details Date Type Department Care Team (Late st Contact Info) Description 03/22/2015 Documentation [facility] [place] [address] [place], [place] [phone] Family Medicine, Physician [address] [place], [place] 911081 Social History Tobacco Use Types Packs/Day Years [...] on filedocumented in this encounter Care Teams Track Announcer Relationship Specialty Start Date End Date Val Draper MD [address] [place] [address] PCP - General 04/16/17 07/12/24 documented as of this encounter
--- OUTSIDE RECORDS SUMMARY | 2025-06-12 16:51 | XMS_ITS | Encounter Summary ---
Author Organization [facility] Address [address] [place] [address] Phone Care Team Providers Care Sculpture Instructor Name Role Phone Val Draper MD Primary Care Provider +1- [phone] Encounter Details Date Type Department Care Team (Late st Contact Info) Description 05/11/2013 Documentation [facility] [place] [address] [place], [place] [phone] Family Medicine, Physician [address] [place], [place] 837151 Social History Tobacco Use Types Packs/Day Years [...] on filedocumented in this encounter Care Teams Sculpture Instructor Relationship Specialty Start Date End Date Val Draper MD [address] [place] [address] PCP - General 04/16/17 07/12/24 documented as of this encounter
--- OUTSIDE RECORDS SUMMARY | 2025-06-12 16:51 | XMS_ITS | Encounter Summary ---
Author Organization [facility] Address [address] [place] [address] Phone Care Team Providers Care Dust Puller Name Role Phone Val Draper MD Primary Care Provider +1- [phone] Encounter Details Date Type Department Care Team (Late st Contact Info) Description 01/14/2017 Documentation [facility] [place] Family Medicine [address] [place], [place] [phone] Family Medicine, Physician [address] [place], [place] 623451 Social History Tobacco Use Types Packs/Day Years [...] on filedocumented in this encounter Care Teams Dust Puller Relationship Specialty Start Date End Date Val Draper MD [address] [place] [address] PCP - General 04/16/17 07/12/24 documented as of this encounter
--- OUTSIDE RECORDS SUMMARY | 2025-06-12 16:51 | XMS_ITS | Encounter Summary ---
Author Organization [facility] Address [address] [place] [address] Phone Care Team Providers Care Dental Surgeon Name Role Phone Val Draper MD Primary Care Provider +1- [phone] Encounter Details Date Type Department Care Team (Late st Contact Info) Description 04/22/2017 Conversion Encounter [facility] [place] [address] [place] [address] Social History Tobacco Use Types Packs/Day Years [...] on filedocumented in this encounter Care Teams Dental Surgeon Relationship Specialty Start Date End Date Val Draper MD [address] [place] [address] PCP - General 04/16/17 07/12/24 documented as of this encounter
--- OUTSIDE RECORDS SUMMARY | 2025-06-12 16:51 | XMS_ITS | Encounter Summary ---
Author Organization [facility] Address [address] [place] [address] Phone Care Team Providers Care Web Design Intern Name Role Phone Val Draper MD Primary Care Provider +1- [phone] Encounter Details Date Type Department Care Team (Late st Contact Info) Description 11/09/2014 Documentation [facility] [place] Family Medicine [address] [place], [place] [phone] Family Medicine, Physician [address] [place], [place] 987641 Social History Tobacco Use Types Packs/Day Years [...] on filedocumented in this encounter Care Teams Web Design Intern Relationship Specialty Start Date End Date Val Draper MD [address] [place] [address] PCP - General 04/16/17 07/12/24 documented as of this encounter
--- OUTSIDE RECORDS SUMMARY | 2025-06-12 16:51 | XMS_ITS | Encounter Summary ---
Author Organization [facility] Address [address] [place] [address] Phone Care Team Providers Care Major General Name Role Phone Val Draper MD Primary Care Provider +1- [phone] Encounter Details Date Type Department Care Team (Late st Contact Info) Description 11/09/2014 Documentation [facility] [place] Family Medicine [address] [place], [place] [phone] Family Medicine, Physician [address] [place], [place] 550051 Social History Tobacco Use Types Packs/Day Years [...] on filedocumented in this encounter Care Teams Major General Relationship Specialty Start Date End Date Val Draper MD [address] [place] [address] PCP - General 04/16/17 07/12/24 documented as of this encounter
== END 2025-06-12 13:41 | disposition home or self-care (01) ==
LOC: HO.RESP 13:40
PROVIDERS: PCP Internal Medicine; Visit Provider Internal Medicine
DX: J45.909 Unspecified asthma, uncomplicated (principal); R05.3 Chronic cough
CPT/HCPCS: 94010; 94640; 94727; 94729

== ENCOUNTER → 2025-06-12 13:57 | Outpatient (BNV) | payer BC, SELFPAY | PROVIDERS: PCP Internal Medicine; Visit Provider Internal Medicine Pulmonary Disease | DX: J45.909 Unspecified asthma, uncomplicated (principal) | CPT/HCPCS: 94060; 94727; 94729 ==

== ENCOUNTER 2025-06-19 10:18 | Outpatient (REF) | payer BC, SELFPAY ==
[2025-06-19 13:55] LABS: MANUAL DIFF FLAG NO
[2025-06-19 14:02] LABS: Hematocrit 37.9 % (37.0-47.0); Hemoglobin 12.0 g/dl (12.0-16.0); Imm Gran Abs Auto 0.02 X10*3/uL (0.00-0.03); Imm Gran Pct Auto 0.4 % (0.0-0.4); Lymphocytes Absolute Auto 1.2 X10*3/uL (1.2-4.9); Mean Corpuscular HGB Conc 31.7 g/dl (31.0-35.0); Mean Corpuscular Hemoglobin 29.5 pg (27.0-33.0); Mean Corpuscular Volume 93.1 fL (80.0-98.0); NRBC Abs Auto 0.000 X10*3/uL (0.0-0.012); NRBC Pct Auto 0.0 /100WBC (0.0-0.2); Platelet Count 184 X10*3/uL (160-400); Red Blood Count 4.07 X10*6/uL (4.20-5.50); White Blood Count 5.4 X10*3/uL (4.8-10.8)
[2025-06-21 23:49] LABS: Class Alternaria alternata 0; Class Aspergillus fumigatus 0; Class Bermuda Grass 0/1; Class Birch 0/1; Class Cat Dander 0; Class Cladosporium herbarum 0; Class Cockroach 0; Class Common Ragweed 0/1; Class Cottonwood 1; Class Derm. pterony 0; Class Dermatophagoides farinae 0; Class Dog Dander 0; Class Elm 1; Class Maple Box Elder 0/1; Class Mountain Cedar 0/1; Class Mouse Urine Protein 0; Class Mugwort 0/1; Class Oak 0/1; Class Penicillium crysogenum 0; Class Rough Pigweed 0; Class Sheep Sorrel 0; Class Sycamore 0/1; Class Timothy Grass 0/1; Class Walnut Tree 0/1; Class White Ash 1; Class White Mulberry 0/1; D002 - IgE D farinae <0.10 kU/L; E001 - IgE Cat Dander <0.10 kU/L; E005 - IgE Dog Dander <0.10 kU/L; G006 - IgE Timothy Grass 0.15 kU/L; I006-IgE Cockroach, German <0.10 kU/L; M002 - IgE Cladosporium herbar <0.10 kU/L; M003 - IgE Aspergillus fumigat <0.10 kU/L; M006 - IgE Alternaria alternat <0.10 kU/L; T001 IgE Maple/Box Elder 0.24 kU/L; T006 - IgE Cedar, Mountain 0.25 kU/L; T007 - IgE Oak, White 0.25 kU/L; T008 IgE Elm, American 0.43 kU/L; T010 - IgE Walnut 0.26 kU/L; T011 - IgE Maple Leaf Sycamore 0.34 kU/L; T014 - IgE Cottonwood 0.36 kU/L; T015 - IgE Ash, White 0.40 kU/L; T070 - IgE White Mulberry 0.12 kU/L; W001 - IgE Ragweed, Short 0.19 kU/L; W006 - IgE Mugwort 0.17 kU/L; W014 IgE Pigweed, Common <0.10 kU/L; W018 IgE Sheep Sorrel <0.10 kU/L
== END 2025-06-19 10:19 | disposition home or self-care (01) ==
LOC: HO.WFDLDS 10:18
PROVIDERS: PCP Internal Medicine; Referring Provider Internal Medicine; Visit Provider Nurse Practitioner Family
DX: J45.909 Unspecified asthma, uncomplicated (principal); Z91.09 Other allergy status, other than to drugs and biological substances
CPT/HCPCS: 36415; 82785; 85025; 86003

== ENCOUNTER 2025-06-19 10:18 | Outpatient (AMB) | payer BC, SELFPAY ==
--- OUTSIDE RECORDS SUMMARY | 2021-11-18 15:25 | XMS_ITS | Encounter Summary ---
Author Organization [facility] Address [address] [facility] [address] [place] [address] Phone Care Team Providers Care Buhr Mill Operator Name Role Phone Val Draper MD Primary Care Provid er Encounter Details Date Type Department Care Team (Late st Contact Info) Description 11/18/2021 3:25 PM EDT Hospital Encounter [facility] [address] [place] [address] Constanza Martinez FNP [address] [place] [address] [place] [address] [email or web address] Social History Tobacco Use Types Packs/Day Years [...] acute displaced fracture or dislocation. Constanza Martinez PAYING TELLER IMG XR UPPER EXTREMITY Kristi l Result documented in this encounter Visit Diagnoses Not on filedocumented in this encounter Care Teams Buhr Mill Operator Relationship Specialty Start Date End Date Val Draper MD [address] [place] [address] GERALDO Olivares [address] PCP - General Pediatrics 11/18/21 08/14/24 documented as of this encounter Additional Source Comments The information contained in this document represents components of the legal health record. It is not the complete legal health record.[facility]
--- OUTSIDE RECORDS SUMMARY | 2024-08-15 09:57 | XMS_ITS | Encounter Summary ---
Author Organization [facility] Address [address] [employer] [facility] [address] [place] [address] Phone Care Team Providers Care Stator Plate Washer Name Role Phone Teresa Shaw MD Primary Care Provider + [phone] Encounter Details Date Type Department Care Team (Late st Contact Info) Description 08/15/2024 8:57 AM EST Hospital Encounter [facility] [address] [place] [address] Constanza Martinez FNP [address] [place] [address] [email or web address] Social History Tobacco Use Types Packs/Day Years [...] clinician's provided indication for this examination in [facility]: Cough; COUGH AND SOB FOR 2 MONTHS COMPARISON: None. FINDINGS: Devices/Tubes/Lines: None. Lungs: No focal consolidation or pulmonary edema. Pleura: No pleural effusion or pneumothorax. Heart/Mediastinum: Normal heart and mediastinum. Bones/Soft Tissues: No significant skeletal abnormality. Procedure Note Erika Urbano MD - 08/15/2024 XR CHEST PA AND LATERAL 2 VIEWS Referring clinician's provided indication for this examination in [facility]:Cough; COUGH AND SOB FOR 2 MONTHS COMPARISON: None. FINDINGS: Devices/Tubes/Lines: None. Lungs: No focal consolidation or pulmonary edema. Pleura: No pleural effusion or pneumothorax. Heart/Mediastinum: Normal heart and mediastinum. Bones/Soft Tissues: No significant skeletal abnormality. IMPRESSION: No focal consolidation. Constanza Martinez CLAIMS EXAMINER IMG XR CHEST Final Resul t documented in this encounter Visit Diagnoses Not on filedocumented in this encounter Care Teams Stator Plate Washer Relationship Specialty Start Date End Date Teresa Shaw MD PCP - General Internal Medicine 08/15/24 03/21/25 documented as of this encounter Additional Source Comments The information contained in this document represents components of the legal health record. It is not the complete legal health record.[facility]
--- OUTSIDE RECORDS SUMMARY | 2025-03-22 10:14 | XMS_ITS | Encounter Summary ---
Author Organization [facility] Address [address] [facility] [address] [place] [address] Phone Care Team Providers Care Warp Yarn Sorter Name Role Phone Val Draper MD Primary Care Provid er Encounter Details Date Type Department Care Team (Late st Contact Info) Description 03/22/2025 10:14 AM EDT Hospital Encounter [facility] [address] [place] [address] Constanza Martinez FNP [address] [place] [address] [place] [address] [email or web address] Social History [...] skeletal abnormality. IMPRESSION: Normal chest. Constanza Martinez WEIGHT TRAINING INSTRUCTOR IMG XR CHEST Final Resul t documented in this encounter Visit Diagnoses Not on filedocumented in this encounter Care Teams Warp Yarn Sorter Relationship Specialty Start Date End Date Val Draper MD [address] [place] [address] GERALDO Olivares [phone] PCP - General Pediatrics 03/22/25 04/19/25 documented as of this encounter Additional Source Comments The information contained in this document represents components of the legal health record. It is not the complete legal health record.[facility]
[2025-06-19 10:23] VITALS: BP 124/62; PULSE 88; O2SAT 100; BMI 28.1
--- NOTE | 2025-06-19 10:23 | A.OFFVIS_ITS ---
Vital Signs 06/19/25 10:23 Height 5 ft 5.83 in Weight 173 lb 8 oz BMI 28.1 BP 124/62 Blood Pressure Location Rt brachial Position Sitting Pulse 88 Pulse Source Pulse Oximeter Pulse Oximetry (%) 100 Oxygen Delivery Method Room Air Intake Visit Reasons: Chronic cough Allergies amoxicillin Allergy (Mild, Verified 06/19/25 10:26) Hives HPI HPI Chronic cough: Details: Danielle is pleasant 20 year old female, never smoker, with underlying RAD, eczema, anxiety and h/o bilateral Uveitis with elevated PORFIRIO under the care of Rheumatology. She was referred by PCP for chronic cough. The cough began in July following a cold and persisted despite resolution of the initial illness. The cough varied with weather conditions, being dry at times and productive at others, and was initially severe enough to require frequent use of an albuterol inhaler every four hours. She was advised to take allergy medications like Claritin, which did not alleviate symptoms, and was prescribed prednisone, which provided minimal relief. The patient reports a decrease in inhaler use over the past two months, now using it approximately once a week, currently denies any respiratory symptoms. She has no history of asthma or family history of asthma, and no significant exposure to allergens or irritants at home or work. She had chest X-rays during the eight-month period, which were reportedly normal, and she frequently visited urgent care for inhaler prescriptions. The patient has a history of eczema and was evaluated by rheumatology for possible autoimmune disorders, with mildly elevated PORFIRIO levels noted, however has not had further follow up. REPLACED BY [facility] Surgical History No pertinent past surgical history Family History Father Anxiety OCD (obsessive compulsive disorder) Paternal Grandfather Anxiety OCD (obsessive compulsive disorder) Other FH: mental illness Social History Housing: Condominium Alcohol intake: current Patient Tobacco Use Status: Never used Tobacco e-Cigarette/Vaping Use: Never Used Second Hand Smoke Exposure: No service: No Current occupational status: student Cognitive needs: No Hearing needs: No Vision needs: No Review of Systems Const Denies chills, Denies excessive sweating, Denies fever(s), Denies headache(s) and Denies night sweats Eyes Denies dry eyes, Denies irritation and Denies itchy eyes ENT Reports Normal hearing present, Denies headache(s), Denies nasal congestion, Denies nasal discharge, Denies post nasal drip and Denies sore throat Card Denies chest pain, Denies chest pain at rest, Denies chest pain with activity, Denies claudication, Denies leg edema, Denies dyspnea, Denies dyspnea on exertion, Denies orthopnea and Denies paroxysmal nocturnal dyspnea Resp Denies chest congestion, Denies cough, Denies excessive phlegm production, Denies pain on inspiration, Denies pain with cough, Denies dyspnea, Denies dyspnea on exertion, Denies stridor and Denies wheezing Musc Denies myalgias Neuro Reports Normal hearing present and Denies headache(s) Endo Denies excessive sweating Denzel/Lymph Denies lymphadenopathy Aller/Immun Denies itchy eyes, Denies seasonal rhinorrhea and Denies wheezing Physical Exam Vital Signs: Last Vital Signs Pulse 88 06/19/25 10:23 BP 124/62 06/19/25 10:23 Pulse Ox 100 06/19/25 10:23 Oxygen Delivery Method Room Air 06/19/25 10:23 BMI result Body Mass Index 28.1 Const General: cooperative, healthy appearing, comfortable, no acute distress, well developed and alert Orientation/consciousness: patient oriented x3 Limitations: no limitations HEENT Head: Yes normal to inspection, Yes normocephalic and Yes atraumatic Ears: hearing grossly normal bilaterally and external ears normal Eyes General: appearance normal, both eyes and all related structures Eyelids: Yes eyelids normal Sclerae: sclerae normal EOM: EOMs intact bilaterally Neck Neck: Yes normal visual inspection and Yes no lymphadenopathy Lymphatic: no lymphadenopathy noted Chest Chest palpation & inspection: normal inspection of the chest Resp Effort & Inspection: normal respiratory effort, able to speak in complete sentences, no audible wheezes, no cough, no stridor, not tachypneic, no tripod positioning and no use of accessory muscles Auscultation: clear to auscultation bilaterally Cardio Jugular venous distension: no JVD Rate: regular rate Rhythm: regular rhythm Skin Other: warm, dry General skin exam: no rashes or lesions noted Neuro General: patient oriented x3 Cranial nerves: Yes Normal hearing present Cognition (Neuro): normal cognition Gait exam (Neuro): Normal gait present Extrem General: Yes normal to inspection, Yes capillary refill normal, Yes no clubbing, cyanosis or edema and Yes no pedal edema Psych Appearance: grossly normal and well kempt Speech and movement: Normal speech and movement present and Clear speech present Affect: normal affect Attitude: cooperative Thought process: Normal thought process present Thought content: Normal thought content present Insight: Good insight present (Psych) Judgement: Good judgement present (Psych) Assessment & Plan Assessment & Plan (1) Reactive airway disease: Code(s): J45.909 - Unspecified asthma, uncomplicated Category: Medical (2) Environmental allergies: Code(s): Z91.09 - Other allergy status, other than to drugs and biological substances Category: Medical Plan Discussed with the patient the possibility of reactive airway disease and the suggestive findings of asthma from the pulmonary function test. Reviewed the use of albuterol as needed and the potential need for a steroid inhaler if symptoms worsen. Recommended allergy testing to identify any environmental triggers and advised follow-up with Dermatology for new onset rash as well as Rheumatology. Will reach out to [facility] to obtain prior urgent care records as well as prior imaging. All questions were answered and patient is in agreement of plan. Will follow up in 3 months or sooner if needed. Orders: Orders Complete Blood Count Auto Diff Today Z91.09 - Other allergy status, other than to drugs and biological substances Immunoglobulin E Today Z91.09 - Other allergy status, other than to drugs and biological substances Resp Allergy Profile Region I Today Z91.09 - Other allergy status, other than to drugs and biological substances Coding Level of Care Code New Pt Level 4 (87610) Diagnoses Reactive airway disease J45.909 Environmental allergies Z91.09
--- OUTSIDE RECORDS SUMMARY | 2025-06-19 12:08 | XMS_ITS | Patient Health Record ---
[facility] [place] Address [address] [place] [address] Care Team Providers Care Solution Developer Name Role Phone Baron FOSTER, Val Primary Care Provider Unav Mata Paul Unavailable [phone] Gretta Zafar Unavailable [phone] Allergies Allergen (clinical drug ingredient) Drug/Non Drug [...] Encounters Encounter Location Date Provider Diagnosis [facility] [address] [place] [address] 02/05/2025 Gretta Zafar Plan Of Treatment Pending Test Test Name Order Date X ray : Foot, left 3V 09/16/2020 X ray : Foot, right 3V 09/16/2020 Insurance Providers Payer Name Payer Address Payer Phone Subscriber Number Group Number Insured Name Patient Relationship to Insured Coverage Start Date Coverage End Date Ada All Others [address] [place] [address] [phone] [id number] Juan Blanco Child - Insured does not have Financial Responsibility (includes legally adopted child) Medical (General) History Medical History History ICD Code Broken bones Psoriasis/eczema Anxiety Surgical History Surgery Date(Month/Year)
--- OUTSIDE RECORDS SUMMARY | 2025-06-19 12:08 | XMS_ITS | Encounter Summary ---
Author Organization [facility] Address [address] [place] [address] Phone Care Team Providers Care Scientific Informatics Analyst Name Role Phone Val Draper MD Primary Care Provider +1- [phone] Encounter Details Date Type Department Care Team (Late st Contact Info) Description 11/09/2014 Documentation [facility] [place] Family Medicine [address] [place], [place] [phone] Family Medicine, Physician [address] [place], [place] 720161 Social History Tobacco Use Types Packs/Day Years [...] on filedocumented in this encounter Care Teams Scientific Informatics Analyst Relationship Specialty Start Date End Date Val Draper MD [address] [place] [address] PCP - General 04/16/17 07/12/24 documented as of this encounter
--- OUTSIDE RECORDS SUMMARY | 2025-06-19 12:08 | XMS_ITS | Encounter Summary ---
Author Organization [facility] Address [address] [place] [address] Phone Care Team Providers Care Well Driller Helper Name Role Phone Val Draper MD Primary Care Provider +1- [phone] Encounter Details Date Type Department Care Team (Late st Contact Info) Description 03/23/2011 Documentation [facility] [place] Family Medicine [address] [place], [place] [phone] Family Medicine, Physician [address] [place], [place] 357641 Social History Tobacco Use Types Packs/Day Years [...] on filedocumented in this encounter Care Teams Well Driller Helper Relationship Specialty Start Date End Date Val Draper MD [address] [place] [address] 46[address] PCP - General 04/16/17 07/12/24 documented as of this encounter
--- OUTSIDE RECORDS SUMMARY | 2025-06-19 12:08 | XMS_ITS | Encounter Summary ---
Author Organization [facility] Address [address] [place] [address]956 Phone Care Team Providers Care Support Merchandiser Name Role Phone Val Draper MD Primary Care Provider +1- [phone] Encounter Details Date Type Department Care Team (Late st Contact Info) Description 05/30/2015 Documentation [facility] [place] Family Medicine [address] [place], [place] [phone] Family Medicine, Physician [address] [place], [place] 298591 Social History Tobacco Use Types Packs/Day Years [...] on filedocumented in this encounter Care Teams Support Merchandiser Relationship Specialty Start Date End Date Val Draper MD [address] [place] [address] PCP - General 04/16/17 07/12/24 documented as of this encounter
--- OUTSIDE RECORDS SUMMARY | 2025-06-19 12:08 | XMS_ITS | Clinical Summary ---
Author Organization [facility] Address [address] [place] [address] Phone Care Team Providers Care Cardiac Rehabilitation Specialist Name Role Phone Unavailable Primary Care Provider [...] of *CVA/Stroke, No family history of *Sudden /CO under 55, , No family history of [...] Completed 04/22/2022, 09/15/2021 Procedures * Due to [place] state law, this organization might not be sharing sensitive test results. Procedure Name Priority Date/Time Associated Diagnosis Comments CHLAMYDIA AND GONORRHEA, AMPLIFIED Routine 05/30/2024 9:48 AM EDT Screening examination for bacterial and spirochetal disease from Last 3 Months or Most Recently Relevant to Health Maintenance Results * Due to [place] state law, this organization might not be sharing sensitive test results. * Chlamydia and Gonorrhoea, Amplified (Urine) (05/30/2024 9:48 AM EDT) C trach JINNY Negative Negative [facility] N gonorrhoeae JINNY Negative Negative [facility] Urine (Urine, Random (not clean void)) 05/30/2024 9:48 AM EDT 05/30/2024 Comment:UR Narrative [facility] - 06/01/2024 12:06 AM EDT Performed at: 01 - [facility], [address], [place], [place] [id number] Arts Manager: Fadi Stiles MD, Phone: [phone] us Val Draper MD LAB MICROBIOLOGY - GENERAL ORDERABLES Final Result [facility] [address] [place] [address] from Last 3 Months or Most Recently Relevant to Health Maintenance
--- OUTSIDE RECORDS SUMMARY | 2025-06-19 12:08 | XMS_ITS | Encounter Summary ---
Author Organization [facility] Address [address] [place] [address] Phone Care Team Providers Care Psychiatry Instructor Name Role Phone Val Draper MD Primary Care Provider +1- [phone] Encounter Details Date Type Department Care Team (Late st Contact Info) Description 05/30/2015 Documentation [facility] [place] Family Medicine [address] [place], [place] [phone] Family Medicine, Physician [address] [place], [place] 245861 Social History Tobacco Use Types Packs/Day Years [...] on filedocumented in this encounter Care Teams Psychiatry Instructor Relationship Specialty Start Date End Date Val Draper MD [address] [place] [address] PCP - General 04/16/17 07/12/24 documented as of this encounter
--- OUTSIDE RECORDS SUMMARY | 2025-06-19 12:08 | XMS_ITS | Encounter Summary ---
Author Organization [facility] Address [address] [place] [address] Phone Care Team Providers Care Private Equity Analyst Name Role Phone Val Draper MD Primary Care Provider +1- [phone] Encounter Details Date Type Department Care Team (Late st Contact Info) Description 03/22/2015 Documentation [facility] [place] Family Medicine [address] [place], [place] [phone] Family Medicine, Physician [address] [place], [place] 819141 Social History Tobacco Use Types Packs/Day Years [...] on filedocumented in this encounter Care Teams Private Equity Analyst Relationship Specialty Start Date End Date Val Draper MD [address] [place] [address] PCP - General 04/16/17 07/12/24 documented as of this encounter
--- OUTSIDE RECORDS SUMMARY | 2025-06-19 12:09 | XMS_ITS | Encounter Summary ---
Author Organization [facility] Address [address] [place] [address] Phone Care Team Providers Care Assembly Lead Person Name Role Phone Val Draper MD Primary Care Provider +1- [phone] Encounter Details Date Type Department Care Team (Late st Contact Info) Description 11/09/2014 Documentation [facility] [place] Family Medicine [address] [place], [place] [phone] Family Medicine, Physician [address] [place], [place] 144661 Social History Tobacco Use Types Packs/Day Years [...] on filedocumented in this encounter Care Teams Assembly Lead Person Relationship Specialty Start Date End Date Val Draper MD [address] [place] [address] PCP - General 04/16/17 07/12/24 documented as of this encounter
--- OUTSIDE RECORDS SUMMARY | 2025-06-19 12:09 | XMS_ITS | Encounter Summary ---
Author Organization [facility] Address [address] [place] [address] Phone Care Team Providers Care Pediatric Geneticist Name Role Phone Val Draper MD Primary Care Provider +1- [phone] Encounter Details Date Type Department Care Team (Late st Contact Info) Description 04/21/2013 Documentation [facility] [place] Family Medicine [address] [place], [place] [phone] Family Medicine, Physician [address] [place], [place] 230401 Social History Tobacco Use Types Packs/Day Years [...] on filedocumented in this encounter Care Teams Pediatric Geneticist Relationship Specialty Start Date End Date Val Draper MD [address] [place] [address] 12211 PCP - General 04/16/17 07/12/24 documented as of this encounter
--- OUTSIDE RECORDS SUMMARY | 2025-06-19 12:09 | XMS_ITS | Encounter Summary ---
Author Organization [facility] Address [address] [place] [address] Phone Care Team Providers Care Double Ending Machine Operator Name Role Phone Val Draper MD Primary Care Provider +1- [phone] Encounter Details Date Type Department Care Team (Late st Contact Info) Description 01/14/2017 Documentation [facility] [place] [address] [place], [place] [phone] Family Medicine, Physician [address] [place], [place] 095941 Social History Tobacco Use Types Packs/Day Years [...] on filedocumented in this encounter Care Teams Double Ending Machine Operator Relationship Specialty Start Date End Date Val Draper MD [address] [place] [address]342 PCP - General 04/16/17 07/12/24 documented as of this encounter
--- OUTSIDE RECORDS SUMMARY | 2025-06-19 12:09 | XMS_ITS | Encounter Summary ---
Author Organization [facility] Address [address] [place] [address] Phone Care Team Providers Care Financial Institution Treasurer Name Role Phone Val Draper MD Primary Care Provider +1- [phone] Encounter Details Date Type Department Care Team (Late st Contact Info) Description 11/09/[address] [facility] [place] Family Medicine [address] [place], [place] [phone] Family Medicine, Physician [address] [place], [place] 916921 Social History Tobacco Use Types Packs/Day Years [...] on filedocumented in this encounter Care Teams Financial Institution Treasurer Relationship Specialty Start Date End Date Val Draper MD [address] [place] [address] PCP - General 04/16/17 07/12/24 documented as of this encounter
--- OUTSIDE RECORDS SUMMARY | 2025-06-19 12:09 | XMS_ITS | Encounter Summary ---
Author Organization [facility] Address [address] [place] [address] Phone Care Team Providers Care Blood Bank Manager Name Role Phone Val Draper MD Primary Care Provider +1- [phone] Encounter Details Date Type Department Care Team (Late st Contact Info) Description 07/25/2012 Documentation [facility] [place] [facility] [place] [address] [place], [place] [phone] Family Medicine, Physician [address] [place], [place] 565221 Social History Tobacco Use Types Packs/Day Years [...] on filedocumented in this encounter Care Teams Blood Bank Manager Relationship Specialty Start Date End Date Val Draper MD [address] [place] [address] 388[address] PCP - General 04/16/17 07/12/24 documented as of this encounter
--- OUTSIDE RECORDS SUMMARY | 2025-06-19 12:09 | XMS_ITS | Clinical Summary ---
Author Organization Formerly [facility] Address [address] [facility] [address] [place] [address] Phone Care Team Providers Care Distiller Name Role Phone Teresa Shaw MD Primary [...] Description 05/10/2025 12:00 PM EDT Office Visit [facility] at [address] [address] Constanza Martinez FNP Allergic dermatitis (Primary Dx) 04/20/2025 10:50 AM EDT Office Visit [facility] at [address] [address] Ashley Contreras, JAYDEN Acute upper respiratory infection (Primary Dx) 03/22/2025 10:14 AM EDT Hospital Encounter [facility] [address] [place] [address] Constanza Martinez FNP 03/22/2025 9:40 AM EDT Office Visit [facility] at [address] [address] Constanza Martinez, BOOK SEWER Acute bronchitis, unspecified organism (Primary Dx); Allergic [...] 2025 , 06/05/2023, 05/22/2022, Additional history exists COVID-19 VACCINE ( season) 2025 06/28/2024, 06/05/2023, 05/22/2022, Additional history exists Adult Td,Tdap Booster 05/29/2025 05/29/2015 SMOKING Hx and SMOKELESS TOBACCO SCREENING 05/10/2026 05/10/2025 MMR VACCINES Completed 02/22/2008, 02/16/2005 HPV VACCINES Completed 06/29/2017, 06/10/2016 MENINGOCOCCAL VACCINES (ACWY) Completed 07/23/2020, 05/29/2015 MENINGOCOCCAL VACCINES (B) Completed 04/22/2022, HEPATITIS A VACCINES Aged Out No long [...] Rapid Strep A (04/20/2025 11:12 AM EDT) Strep A, PCR Not Detected Not Detected [facility] 04/20/2025 11:1 2 AM EDT 04/20/2025 11:39 AM EDT Ashley Contreras [facility] POINT OF CARE TEST MELANIE POST Final Result [facility] [address] [address], [facility] [phone] * POCT COVID-19 RT-PCR/Influenza A & B/RSV (Cepheid) (04/20/2025 10:49 AM EDT) RSV PCR Negative Negative [facility] SARS-CoV-2 (COVID-19) Negative Negative [facility] POC Influenza A PCR Negative Negative [facility] POC Influenza B PCR Negative Negative [facility] 04/20/2025 10:4 9 AM EDT 04/20/2025 11:29 AM EDT us Ashley Enamorado Diane EXERCISE PLANNER POINT OF CARE TEST MELANIE POST Final Result [facility] [place] 2[facility] AT [address] [address], [facility] [phone] * XR CHEST PA AND LATERAL 2 [...] abnormality. IMPRESSION: Normal chest. us Constanza Martinez BOOK SEWER IMG XR CHEST Final Resul t from Last [address] [place] [address] [address] [address] [place] [address] [place] [address] [facility] [place] [address] Member Subscriber Plan / Payer (Ef fective 2004-Present) Name:Danielle Beverly Relation to Subscriber:Spouse Name:JUSTIN BEVERLY Date of :1972 (Home) Address: [address] [place] [id number] Payer ID:[id number] (NAIC) Type:HMO Address: [address] [facility], [place] [address] [place] [address] [facility] Care Teams Distiller Relationship Specialty Start Date End Date Teresa Shaw MD [address] [place] [address] PCP - General Internal Medicine 04/20/25 Additional Source Comments The information contained in this document represents components of the legal health record. It is not the complete legal health record.Formerly [facility]
--- OUTSIDE RECORDS SUMMARY | 2025-06-19 12:09 | XMS_ITS | Encounter Summary ---
Author Organization [facility] Address [address] [place] [address] Phone Care Team Providers Care Produce Inspector Name Role Phone Val Draper MD Primary Care Provider +1- [phone] Encounter Details Date Type Department Care Team (Late st Contact Info) Description 11/09/2014 Documentation [facility] [place] Medicine [address] [place], [place] [phone] Family Medicine, Physician [address] [place], [place] [address] Social History Tobacco Use Types Packs/Day Years [...] on filedocumented in this encounter Care Teams Produce Inspector Relationship Specialty Start Date End Date Val Draper MD [address] [place] [address] PCP - General 04/16/17 07/12/24 documented as of this encounter
--- OUTSIDE RECORDS SUMMARY | 2025-06-19 12:09 | XMS_ITS | Encounter Summary ---
Author Organization [facility] Address [address] [place] [address] Phone Care Team Providers Care Pupil Personnel Services Director Name Role Phone Val Draper MD Primary Care Provider +1- [phone] Encounter Details Date Type Department Care Team (Late st Contact Info) Description 05/22/2014 Documentation [facility] [place] Family Medicine [address] [place], [place] [phone] Family Medicine, Physician [address] [place], [place] 921331 Social History Tobacco Use Types Packs/Day Years [...] on filedocumented in this encounter Care Teams Pupil Personnel Services Director Relationship Specialty Start Date End Date Val Draper MD [address] [place] [address] PCP - General 04/16/17 07/12/24 documented as of this encounter
--- OUTSIDE RECORDS SUMMARY | 2025-06-19 12:09 | XMS_ITS | Encounter Summary ---
Author Organization [facility] Address [address] [place] [address] Phone Care Team Providers Care Hris Specialist Name Role Phone Val Draper MD Primary Care Provider +1- [phone] Encounter Details Date Type Department Care Team (Late st Contact Info) Description 11/09/2014 Documentation [facility] [place] Family Medicine [address] [place], [place] [phone] Family Medicine, Physician [address] [place], [place] 47[address] Social History Tobacco Use Types Packs/Day Years [...] on filedocumented in this encounter Care Teams Hris Specialist Relationship Specialty Start Date End Date Val Draper MD [address] [place] [address] PCP - General 04/16/17 07/12/24 documented as of this encounter
--- OUTSIDE RECORDS SUMMARY | 2025-06-19 12:09 | XMS_ITS | Encounter Summary ---
Author Organization [facility] Address [address] [place] [address] Phone Care Team Providers Care Ball Winder Name Role Phone Val Draper MD Primary Care Provider +1- [phone] Encounter Details Date Type Department Care Team (Late st Contact Info) Description 11/09/2014 Documentation [facility] [place] [address] [place], [place] [phone] Family Medicine, Physician [address] [place], [place] 359961 Social History Tobacco Use Types Packs/Day Years [...] on filedocumented in this encounter Care Teams Ball Winder Relationship Specialty Start Date End Date Val Draper MD [address] [place] [address] PCP - General 04/16/17 07/12/24 documented as of this encounter
--- OUTSIDE RECORDS SUMMARY | 2025-06-19 12:09 | XMS_ITS | Encounter Summary ---
Author Organization [facility] Address [address] [place] [address] Phone Care Team Providers Care Chief Credit Officer Name Role Phone Val Draper MD Primary Care Provider +1- [phone] Encounter Details Date Type Department Care Team (Late st Contact Info) Description 05/10/2013 Documentation [facility] [place] [address] [place], [place] [phone] Family Medicine, Physician [address] [place], [place] [address]29[address] Social History Tobacco Use Types Packs/Day Years [...] on filedocumented in this encounter Care Teams Chief Credit Officer Relationship Specialty Start Date End Date Val Draper MD [address] [place] [address] PCP - General 04/16/17 07/12/24 documented as of this encounter
--- OUTSIDE RECORDS SUMMARY | 2025-06-19 12:09 | XMS_ITS | Encounter Summary ---
Author Organization [facility] Address [address] [place] [address] Phone Care Team Providers Care Wharf Tender Head Name Role Phone Val Draper MD Primary Care Provider +1- [phone] Encounter Details Date Type Department Care Team (Late st Contact Info) Description 04/22/2017 Conversion Encounter [facility] [address] [place] [address] Social History Tobacco Use Types Packs/Day Years [...] on filedocumented in this encounter Care Teams Wharf Tender Head Relationship Specialty Start Date End Date Val Draper MD [address] [place] [address] PCP - General 04/16/17 07/12/24 documented as of this encounter
--- OUTSIDE RECORDS SUMMARY | 2025-06-19 12:09 | XMS_ITS | Encounter Summary ---
Author Organization [facility] Address [address] [place] [address] Phone Care Team Providers Care Corpsman Name Role Phone Val Draper MD Primary Care Provider +1- [phone] Encounter Details Date Type Department Care Team (Late st Contact Info) Description 05/11/2013 Documentation [facility] [place] Medicine [address] [place], [place] [phone] Family Medicine, Physician [address] [place], [place] 7685[address] Social History Tobacco Use Types Packs/Day Years [...] on filedocumented in this encounter Care Teams Corpsman Relationship Specialty Start Date End Date Val Draper MD [address] [place] [address] PCP - General 04/16/17 07/12/24 documented as of this encounter
--- OUTSIDE RECORDS SUMMARY | 2025-06-19 12:09 | XMS_ITS | Encounter Summary ---
Author Organization [facility] Address [address] [place] [address] Phone Care Team Providers Care J2Ee Consultant Name Role Phone Val Draper MD Primary Care Provider +1- [phone] Encounter Details Date Type Department Care Team (Late st Contact Info) Description 11/09/2014 Documentation [facility] [place] [address] [place], [place] [phone] Family Medicine, Physician [address] [place], [place] 264601 Social History Tobacco Use Types Packs/Day Years [...] on filedocumented in this encounter Care Teams J2Ee Consultant Relationship Specialty Start Date End Date Val Draper MD [address] [place] [address] PCP - General 04/16/17 07/12/24 documented as of this encounter
--- OUTSIDE RECORDS SUMMARY | 2025-06-19 12:09 | XMS_ITS | Encounter Summary ---
Author Organization [facility] Address [address] [place] [address] Phone Care Team Providers Care Ops Manager Name Role Phone Val Draper MD Primary Care Provider +1- [phone] Encounter Details Date Type Department Care Team (Late st Contact Info) Description 11/09/2014 Documentation [facility] [place] [address] [place], [place] [phone] Family Medicine, Physician [address] [place], [place] 974971 Social History Tobacco Use Types Packs/Day Years [...] on filedocumented in this encounter Care Teams Ops Manager Relationship Specialty Start Date End Date Val Draper MD [address] [place] [address] PCP - General 04/16/17 07/12/24 documented as of this encounter
--- OUTSIDE RECORDS SUMMARY | 2025-06-19 12:09 | XMS_ITS | Encounter Summary ---
Author Organization [facility] Address [address] [place] [address] Phone Care Team Providers Care Fresh Foods Technician Name Role Phone Val Draper MD Primary Care Provider +1- [phone] Encounter Details Date Type Department Care Team (Late st Contact Info) Description 04/05/2012 Documentation [facility] [place] [address] [place], [place] [phone] Family Medicine, Physician [address] [place], [place] 277431 Social History Tobacco Use Types Packs/Day Years [...] on filedocumented in this encounter Care Teams Fresh Foods Technician Relationship Specialty Start Date End Date Val Draper MD [address] [place] [address] PCP - General 04/16/17 07/12/24 documented as of this encounter
--- OUTSIDE RECORDS SUMMARY | 2025-06-19 12:09 | XMS_ITS | Encounter Summary ---
Author Organization [facility] Address [address] [place] [address] Phone Care Team Providers Care Edge Trimmer Mechanic Name Role Phone Val Draper MD Primary Care Provider +1- [phone] Encounter Details Date Type Department Care Team (Late st Contact Info) Description 06/12/[address] [facility] [place] Family Medicine [address] [place], [place] [phone] Family Medicine, Physician [address] [place], [place] 438541 Social History Tobacco Use Types Packs/Day Years [...] on filedocumented in this encounter Care Teams Edge Trimmer Mechanic Relationship Specialty Start Date End Date Val Draper MD [address] [place] [address] PCP - General 04/16/17 07/12/24 documented as of this encounter
--- OUTSIDE RECORDS SUMMARY | 2025-06-19 12:09 | XMS_ITS | Encounter Summary ---
Author Organization [facility] Address [address] [place] [address] Phone Care Team Providers Care Farm Reporter Name Role Phone Val Draper MD Primary Care Provider +1- [phone] Encounter Details Date Type Department Care Team (Late st Contact Info) Description 05/22/[address] [facility] [place] Family Medicine [address] [place], [place] 1796693 Family Medicine, Physician [address] [place], [place] 176591 Social History Tobacco Use Types Packs/Day Years [...] on filedocumented in this encounter Care Teams Farm Reporter Relationship Specialty Start Date End Date Val Draper MD [address] [place] [address] PCP - General 04/16/17 07/12/24 documented as of this encounter
--- OUTSIDE RECORDS SUMMARY | 2025-06-19 12:09 | XMS_ITS | Encounter Summary ---
Author Organization [facility] Address [address] [place] [address] Phone Care Team Providers Care Nurse'S Assistant Name Role Phone Val Draper MD Primary Care Provider +1- [phone] Encounter Details Date Type Department Care Team (Late st Contact Info) Description 05/22/2014 Documentation [facility] [place] [address] [place], [place] [address] Family Medicine, Physician [address] [place], [place] 889841 Social History Tobacco Use Types Packs/Day Years [...] on filedocumented in this encounter Care Teams Nurse'S Assistant Relationship Specialty Start Date End Date Val Draper MD [address] [place] [address] PCP - General 04/16/17 07/12/24 documented as of this encounter
--- OUTSIDE RECORDS SUMMARY | 2025-06-19 12:09 | XMS_ITS | Encounter Summary ---
Author Organization [facility] Address [address] [place] [address] Phone Care Team Providers Care Card Lacer Name Role Phone Val Draper MD Primary Care Provider +1- [phone] Encounter Details Date Type Department Care Team (Late st Contact Info) Description 03/02/2017 Documentation [facility] [place] Family Medicine [address] [place], [place] [phone] Family Medicine, Physician [address] [place], [place] 496101 Social History Tobacco Use Types Packs/Day Years [...] on filedocumented in this encounter Care Teams Card Lacer Relationship Specialty Start Date End Date Val Draper MD [address] [place] [address] PCP - General 04/16/17 07/12/24 documented as of this encounter
--- OUTSIDE RECORDS SUMMARY | 2025-06-19 12:09 | XMS_ITS | Encounter Summary ---
Author Organization [facility] Address [address] [place] [address] Phone Care Team Providers Care Zipper Lining Folder Name Role Phone Val Draper MD Primary Care Provider +1- [phone] Encounter Details Date Type Department Care Team (Late st Contact Info) Description 04/05/2012 Documentation [facility] [place] [address] [place], [place] [phone] Family Medicine, Physician [address] [place], [place] 136071 Social History Tobacco Use Types Packs/Day Years [...] on filedocumented in this encounter Care Teams Zipper Lining Folder Relationship Specialty Start Date End Date Val Draper MD [address] [place] [address] PCP - General 04/16/17 07/12/24 documented as of this encounter
--- OUTSIDE RECORDS SUMMARY | 2025-06-19 12:09 | XMS_ITS | Encounter Summary ---
Author Organization [facility] Address [address] [place] [address] Phone Care Team Providers Care Thread Singer Name Role Phone Val Draper MD Primary Care Provider +1- [phone] Encounter Details Date Type Department Care Team (Late st Contact Info) Description 11/09/2014 Documentation [facility] [place] Family Medicine [address] [place], [place] [phone] Family Medicine, Physician [address] [place], [place] 625711 Social History Tobacco Use Types Packs/Day Years [...] on filedocumented in this encounter Care Teams Thread Singer Relationship Specialty Start Date End Date Val Draper MD [address] [place] [address] PCP - General 04/16/17 07/12/24 documented as of this encounter
== END 2025-06-19 10:55 | disposition home or self-care (01) ==
PROVIDERS: PCP Internal Medicine; Referring Provider Internal Medicine; Visit Provider Nurse Practitioner Family
DX: J45.909 Unspecified asthma, uncomplicated (principal); Z91.09 Other allergy status, other than to drugs and biological substances
CPT/HCPCS: 99204

== ENCOUNTER 2025-07-31 13:34 | Outpatient (AMB) | payer BC, SELFPAY ==
--- OUTSIDE RECORDS SUMMARY | 2021-11-18 14:25 | XMS_ITS | Encounter Summary ---
Author Organization [facility] Address [address] [facility] [address] [place] [address] Phone Care Team Providers Care Community Organization Director Name Role Phone Val Draper MD Primary Care Provid er Encounter Details Date Type Department Care Team (Late st Contact Info) Description 11/18/2021 3:25 PM EDT Hospital Encounter [facility] [address] [place] [address] Constanza Martinez FNP [address] [place] [address] [place] [address] [email or web address] Social History Tobacco Use Types Packs/Day Years Used Date Smoking Tobacco: Never Passive Smoke Exposure: Never Smokeless Tobacco: Never Alcohol Use Standard Drinks/Week Comments Never 0 (1 standard drink = 0.6 oz pur e alcohol) Education Answer Date Recorded Are you interested in more education? Not on kit e 01/01/2023 Are you concerned about learning? Not on file 01/01/2023 No 01/01/2023 No 01/01/2023 Digital Access Answer Date Recorded No 01/29/2023 No 01/29/2023 Reliable internet access at home? Not on file 01/29/2023 Device with a working camera? Not on file Comments No Sex and Gender Information Value Date Recorded Sex Assigned at Female 05/01/2024 9:59 AM EDT Legal Sex Female 8:44 PM EDT Gender Identity Female 05/01/2024 9:59 AM EDT Sexual Orientation Straight 05/01/2024 9: 59 AM EDT documented as of this encounter Plan of Treatment Not on file documented as of this encounter Procedures Procedure Name Priority Date/Time Associated Diagnosis Comments XR FINGER 2 OR MORE VIEWS (RIGHT) Urgent/patient waiting 11/18/2021 3:33 PM EDT Fall, initial encounter documented in this encounter Results * XR FINGER 2 OR MORE VIEWS (RIGHT) (11/18/2021 3:33 PM EDT) Anatomical Region Laterality Modality Hand Right Computed Radiogr aphy 11/18/2021 3:39 PM EDT Impressions 11/18/2021 3:42 PM EDT No acute displaced fracture or dislocation. Narrative 11/18/2021 3:42 PM EDT XR FINGER 2 OR MORE VIEWS (RIGHT) COMPARISON: None FINDINGS: No acute displaced fracture or dislocation. The joint spaces are grossly maintained. The alignment is maintained. The soft tissues are unremarkable. Procedure Note Cade Puga MD - 11/18/2021 XR FINGER 2 OR MORE VIEWS (RIGHT) COMPARISON: None FINDINGS: No acute displaced fracture or dislocation. The joint spaces are grosslymaintained. The alignment is maintained. The soft tissues areunremarkable. IMPRESSION: No acute displaced fracture or dislocation. Constanza Martinez TUGBOAT OPERATOR IMG XR UPPER EXTREMITY Kristi l Result documented in this encounter Visit Diagnoses Not on filedocumented in this encounter Care Teams Community Organization Director Relationship Specialty Start Date End Date Val Draper MD [address] [place] [address] GERALDO Olivares [id number] PCP - General Pediatrics 11/18/21 08/14/24 documented as of this encounter Additional Source Comments The information contained in this document represents components of the legal health record. It is not the complete legal health record.[facility]
--- OUTSIDE RECORDS SUMMARY | 2024-08-15 08:57 | XMS_ITS | Encounter Summary ---
Author Organization [facility] Address [address] [facility] [address] [place] [address] Phone Care Team Providers Care Director Of Corporate Marketing Name Role Phone Teresa Shaw MD Primary Care Provider + [phone] Encounter Details Date Type Department Care Team (Late st Contact Info) Description 08/15/2024 8:57 AM EST Hospital Encounter [facility] [address] [place] [address] Constanza Martinez FNP [address] [place] [address] [email or web address] Social History Tobacco Use Types Packs/Day Years [...] Name Priority Date/Time Associated Diagnosis Comments XR CHEST PA AND LATERAL 2 VIEWS Urgent/patient waiting 08/15/2024 9:04 AM EST Acute bronchitis, unspecified organism documented in this encounter Results * XR CHEST PA AND LATERAL 2 VIEWS (08/15/2024 9:04 AM EST) Anatomical Region Laterality Modality Chest Computed Radiogr aphy 08/15/2024 9:22 AM EST Impressions 08/15/2024 9:23 AM EST No focal consolidation. Narrative 08/15/2024 9:23 AM EST XR CHEST PA AND LATERAL 2 VIEWS Referring clinician's provided indication for this examination in [facility]: Cough; COUGH AND SOB FOR 2 MONTHS COMPARISON: None. FINDINGS: Devices/Tubes/Lines: None. Lungs: No focal consolidation or pulmonary edema. Pleura: No pleural effusion or pneumothorax. Heart/Mediastinum: Normal heart and mediastinum. Bones/Soft Tissues: No significant skeletal abnormality. Procedure Note Erika Urbano MD - 08/15/2024 XR CHEST PA AND LATERAL 2 VIEWS Referring clinician's provided indication for this examination in [facility]:Cough; COUGH AND SOB FOR 2 MONTHS COMPARISON: None. FINDINGS: Devices/Tubes/Lines: None. Lungs: No focal consolidation or pulmonary edema. Pleura: No pleural effusion or pneumothorax. Heart/Mediastinum: Normal heart and mediastinum. Bones/Soft Tissues: No significant skeletal abnormality. IMPRESSION: No focal consolidation. Constanza Martinez MACHINIST CLASS B IMG XR CHEST Final Resul t documented in this encounter Visit Diagnoses Not on filedocumented in this encounter Care Teams Director Of Corporate Marketing Relationship Specialty Start Date End Date Teresa Shaw MD PCP - General Internal Medicine 08/15/24 03/21/25 documented as of this encounter Additional Source Comments The information contained in this document represents components of the legal health record. It is not the complete legal health record.[facility]
--- OUTSIDE RECORDS SUMMARY | 2025-03-22 09:14 | XMS_ITS | Encounter Summary ---
Author Organization [facility] Address [address] [facility] [address] [place] [address] Phone Care Team Providers Care Patient Monitor Name Role Phone Val Draper MD Primary Care Provid er Encounter Details Date Type Department Care Team (Late st Contact Info) Description 03/22/2025 10:14 AM EDT Hospital Encounter [facility] [address] [place] [address] Constanza Martinez FNP [address] [place] [address] [place] [address] [email or web address] Social History Tobacco Use Types Packs/Day Years [...] PA AND LATERAL 2 VIEWS Urgent/patient waiting 03/22/2025 10:18 AM EDT Acute bronchitis, unspecified organism documented in this encounter Results * XR CHEST PA AND LATERAL 2 VIEWS (03/22/2025 10:18 AM EDT) Anatomical Region Laterality Modality Chest Computed Radiogr aphy 03/22/2025 11:0 1 AM EDT Impressions 03/22/2025 11:02 AM EDT Normal chest. Narrative 03/22/2025 11:02 AM EDT XR CHEST PA AND LATERAL 2 VIEWS Referring clinician's provided indication for this examination in Epic: Cough; pt states she has been coughing 8-9 months COMPARISON: XR CHEST PA AND LATERAL 2 VIEWS FINDINGS: Devices/Tubes/Lines: None. Lungs: Normal. The lungs are clear. No focal consolidation or pulmonary edema. Pleura: Normal. No pleural effusion or pneumothorax. Heart/Mediastinum: Normal heart and mediastinum. Bones/Soft Tissues: Normal. No significant skeletal abnormality. Procedure Note Sara Mobley MD - 03/22/2025 XR CHEST PA AND LATERAL 2 VIEWS Referring clinician's provided indication for this examination in Epic:Cough; pt states she has been coughing 8-9 months COMPARISON: XR CHEST PA AND LATERAL 2 VIEWS FINDINGS: Devices/Tubes/Lines: None. Lungs: Normal. The lungs are clear. No focal consolidation or pulmonaryedema. Pleura: Normal. No pleural effusion or pneumothorax. Heart/Mediastinum: Normal heart and mediastinum. Bones/Soft Tissues: Normal. No significant skeletal abnormality. IMPRESSION: Normal chest. Constanza Martinez CORPORATE QUALITY ASSURANCE MANAGER IMG XR CHEST Final Resul t documented in this encounter Visit Diagnoses Not on filedocumented in this encounter Care Teams Patient Monitor Relationship Specialty Start Date End Date Val Draper MD [address] [place] [address] GERALDO Olivares [address] PCP - General Pediatrics 03/22/25 04/19/25 documented as of this encounter Additional Source Comments The information contained in this document represents components of the legal health record. It is not the complete legal health record.[facility]
--- NOTE | 2025-07-31 13:44 | MHC.PC.OV ---
Vital Signs 07/31/25 13:45 Height 5 ft 5.83 in Weight 173 lb BMI 28.1 BP 114/72 Blood Pressure Location Rt brachial Position Sitting Respiration 14 Pulse 100 Pulse Source Pulse Oximeter Temp 98.8 F Temp Source Oral Pulse Oximetry (%) 100 Oxygen Delivery Method Room Air Intake Visit Reasons: Chemistry Department Chair referral request Intake Note: Referral to net front end developer for rash around neck. Lining Machine Operator Required: No Allergies amoxicillin Allergy (Mild, Verified 07/31/25 13:45) Hives Tobacco use date assessed: 07/31/25 Dental Screening Dental Screen Date: 04/02/25 HPI HPI Comments History of Present Illness Details 20 year old female with past medical history of eczema, uveitis, RAD, presenting for follow up For the past few months has been plagued intermittently by rash around the upper and lower neck and collarbone. She has not changed detergents, does not use lotions, perfumes etc. She believe cutting out milk has helped out slightly. It is itchy at times. Pictures reveal blotchy, confluent minimally raised erythema BH: Doing well on wellbutrin. Continues to see a therapist Saw gynecology in the past. We trialed OCP but she was intolerant to SE ROS see HPI PHYSICAL EXAM: GENERAL: Alert and oriented x 3. NAD EYES: EOMI. Anicteric. HENT: Moist mucous membranes. No scleral icterus. No cervical lymphadenopathy. LUNGS: Clear to auscultation bilaterally. CARDIOVASCULAR: Regular rate and rhythm. No murmur. No JVD. ABDOMEN: Soft, non-tender +bs EXTREMITIES: No edema. Non-tender. SKIN: No rashes or lesions. Warm. NEUROLOGIC: No focal neurological deficits. CN II-XII grossly intact PSYCHIATRIC: Cooperative. Appropriate mood and affect [facility] Surgical History No pertinent past surgical history Family History Father Anxiety OCD (obsessive compulsive disorder) Paternal Grandfather Anxiety OCD (obsessive compulsive disorder) Other FH: mental illness Social History Housing: Condominium Alcohol intake: current Patient Tobacco Use Status: Never used Tobacco e-Cigarette/Vaping Use: Never Used Second Hand Smoke Exposure: No service: No Current occupational status: student Cognitive needs: No Hearing needs: No Vision needs: No Questionnaire Thrive Questionnaire Date Thrive assessed: 03/30/25 I am a: Patient What is your living situation today?: I have a steady place to live Within the past 12 months, did the food you bought not last and you didn't have the money to get more?: Never true Within the past 12 months, did you worry whether your food would run out before you got money to buy more?: Never true Do you have trouble paying for medicines?: No Do you have trouble getting transportation to medical appointments?: No Do you have trouble paying your heating and electricity bill?: No Do you have trouble taking care of your child, family member or friend?: No Do you have trouble with day-to-day activities such as bathing, preparing meals, shopping, managing finances, etc.?: No Are you currently unemployed and looking for a job?: No Are you interested in more education?: No Please select the resources that you would like help with: None Currently or been in a relationship where the following occur: No concerns reported THRIVE Score: 0 AUDIT C Alcohol Use Questionnaire (AUDIT-C) 1. How often do you have a drink containing alcohol?: Monthly or less 2. How many drinks containing alcohol do you have on a typical day when you are drinking?: 1 or 2 3. How often do you have six or more drinks on one occasion?: Never Total Score: 1 BOB-7 AMB Questionnaire BOB-7 Date BOB - 7 assessed: 04/02/25 Source: Developed by Drs. Kervin Rodgers, Maureen Albert, Doyle Lunsford and colleagues, with an educational lexus from [employer]. Physical exam (Primary Care) Vital Signs: Last Vital Signs Temp 98.8 F 07/31/25 13:45 Pulse 100 07/31/25 13:45 Resp 14 07/31/25 13:45 BP 114/72 07/31/25 13:45 Pulse Ox 100 07/31/25 13:45 Oxygen Delivery Method Room Air 07/31/25 13:45 BMI result Body Mass Index 28.1 Tobacco/Smoking Status: Tobacco use Status Tobacco use date assessed 07/31/25 07/31/25 13:47 Patient Tobacco Use Status Never used Tobacco 07/31/25 13:47 e-Cigarette/Vaping Use Never Used 07/31/25 13:47 Thrive Assessment: Date of Thrive Assessment Date Thrive assessed 03/30/25 07/31/25 13:47 Currently or been in a relationship where the following occur: No concerns reported Coding Level of Care Code Est Pt Level 4 (72035) Diagnoses Rash R21 Skin irritation R23.8 Assessment & Plan Assessment & Plan (1) Rash: Code(s): R21 - Rash and other nonspecific skin eruption Category: Medical (2) Skin irritation: Code(s): R23.8 - Other skin changes Category: Medical Plan 20 year old female presenting for follow up SHe has bothersome intermittent rash x months. She requests referral to allergy which is placed She can use topical steroid treatments pending appt Orders: Referrals Allergy & Immunology Referral R21 - Rash and other nonspecific skin eruption, R23.8 - Other skin changes Medications: New clobetasol 0.05% 1 appl topical BEDTIME 118 mL 3RF 4 weeks NS Refilled triamcinolone acetonide 0.1% 1 appl topical BID 30 grams 0RF
[2025-07-31 13:45] VITALS: BP 114/72; PULSE 100; RESP 14; TEMP 37.1; O2SAT 100; BMI 28.1
--- OUTSIDE RECORDS SUMMARY | 2025-07-31 17:30 | XMS_ITS | Encounter Summary ---
Author Organization [facility] Address [address] [place] [address] Phone Care Team Providers Care Pillow Filler Name Role Phone Val Draper MD Primary Care Provider +1- [phone] Encounter Details Date Type Department Care Team (Late st Contact Info) Description 11/09/2014 Documentation [facility] [place] [address] [place], [place] [phone] Family Medicine, Physician [address] [place], [place] 3258[address] Social History Tobacco Use Types Packs/Day Years [...] on filedocumented in this encounter Care Teams Pillow Filler Relationship Specialty Start Date End Date Val Draper MD [address] [place] [address] PCP - General 04/16/17 07/12/24 documented as of this encounter
--- OUTSIDE RECORDS SUMMARY | 2025-07-31 17:30 | XMS_ITS | Encounter Summary ---
Author Organization [facility] Address [address] [place] [address] 23963 Phone Care Team Providers Care Fitness Plan Coordinator Name Role Phone Val Draper MD Primary Care Provider +1- [phone] Encounter Details Date Type Department Care Team (Late st Contact Info) Description 04/05/2012 Documentation [facility] [place] [address] [place], [place] [phone] Family Medicine, Physician [address] [place], [place] 459601 Social History Tobacco Use Types Packs/Day Years [...] on filedocumented in this encounter Care Teams Fitness Plan Coordinator Relationship Specialty Start Date End Date Val Draper MD [address] [place] [address] 46886 PCP - General 04/16/17 07/12/24 documented as of this encounter
--- OUTSIDE RECORDS SUMMARY | 2025-07-31 17:30 | XMS_ITS | Encounter Summary ---
Author Organization [facility] Address [address] [place] [address] 7[address]37 Phone Care Team Providers Care Provider Network Manager Name Role Phone Val Draper MD Primary Care Provider +1- [phone] Encounter Details Date Type Department Care Team (Late st Contact Info) Description 11/09/2014 Documentation [facility] [place] [address] [place], [place] [phone] Family Medicine, Physician [address] [place], [place] 040071 Social History Tobacco Use Types Packs/Day Years [...] on filedocumented in this encounter Care Teams Provider Network Manager Relationship Specialty Start Date End Date Val Draper MD [address] [place] [address] 74560 PCP - General 04/16/17 07/12/24 documented as of this encounter
--- OUTSIDE RECORDS SUMMARY | 2025-07-31 17:30 | XMS_ITS | Encounter Summary ---
Author Organization [facility] Address [address] [place] [address] 28968 Phone Care Team Providers Care Explosion Welder Name Role Phone Val Draper MD Primary Care Provider +1- [phone] Encounter Details Date Type Department Care Team (Late st Contact Info) Description 05/10/2013 Documentation [facility] [place] [address] [place], [place] [phone] Family Medicine, Physician [address] [place], [place] 679371 Social History Tobacco Use Types Packs/Day Years [...] on filedocumented in this encounter Care Teams Explosion Welder Relationship Specialty Start Date End Date Val Draper MD [address] [place] [address] 56946 PCP - General 04/16/17 07/12/24 documented as of this encounter
--- OUTSIDE RECORDS SUMMARY | 2025-07-31 17:30 | XMS_ITS | Encounter Summary ---
Author Organization [facility] Address [address] [place] [address] 30477 Phone Care Team Providers Care Pad Tufter Name Role Phone Val Draper MD Primary Care Provider +1- [phone] Encounter Details Date Type Department Care Team (Late st Contact Info) Description 05/22/2014 Documentation [facility] [place] [address] [place], [place] [phone] Family Medicine, Physician [address] [place], [place] 258851 Social History Tobacco Use Types Packs/Day Years [...] on filedocumented in this encounter Care Teams Pad Tufter Relationship Specialty Start Date End Date Val Draper MD [address] [place] [address] 03994 PCP - General 04/16/17 07/12/24 documented as of this encounter
--- OUTSIDE RECORDS SUMMARY | 2025-07-31 17:30 | XMS_ITS | Encounter Summary ---
Author Organization [facility] Address [address] [place] [address] 80375 Phone Care Team Providers Care Planer Offbearer Name Role Phone Val Draper MD Primary Care Provider +1- [phone] Encounter Details Date Type Department Care Team (Late st Contact Info) Description 11/09/2014 [place]ation [facility] [place] [address] [place], [place] [phone] Family Medicine, Physician [address] [place], [place] 791571 Social History Tobacco Use Types Packs/Day Years [...] on filedocumented in this encounter Care Teams Planer Offbearer Relationship Specialty Start Date End Date Val Draper MD [address] [place] [address] 87125 PCP - General 04/16/17 07/12/24 documented as of this encounter
--- OUTSIDE RECORDS SUMMARY | 2025-07-31 17:30 | XMS_ITS | Encounter Summary ---
Author Organization [facility] Address [address] [place] [address] 37593 Phone Care Team Providers Care Guitar Repair Technician Name Role Phone Val Draper MD Primary Care Provider +1- [phone] Encounter Details Date Type Department Care Team (Late st Contact Info) Description 05/22/2014 Documentation [facility] [place] [address] [place], [place] [phone] Family Medicine, Physician [address] [place], [place] 449971 Social History Tobacco Use Types Packs/Day Years [...] on filedocumented in this encounter Care Teams Guitar Repair Technician Relationship Specialty Start Date End Date Val Draper MD [address] [address] 75761 PCP - General 04/16/17 07/12/24 documented as of this encounter
--- OUTSIDE RECORDS SUMMARY | 2025-07-31 17:30 | XMS_ITS | Encounter Summary ---
Author Organization [facility] Address [address] [place] [address] 0[address] Phone Care Team Providers Care Drying Machine Tender Name Role Phone Val Draper MD Primary Care Provider +1- [phone] Encounter Details Date Type Department Care Team (Late st Contact Info) Description 03/22/2015 Documentation [facility] [place] Family [place] [address] [place], [place] 0041093 Family Medicine, Physician [address] [place], [place] 698351 Social History Tobacco Use Types Packs/Day Years [...] on filedocumented in this encounter Care Teams Drying Machine Tender Relationship Specialty Start Date End Date Val Draper MD [address] [place] [address] 54220 PCP - General 04/16/17 07/12/24 documented as of this encounter
--- OUTSIDE RECORDS SUMMARY | 2025-07-31 17:30 | XMS_ITS | Encounter Summary ---
Author Organization [facility] Address [address] [place] [address] 24867 Phone Care Team Providers Care Legal Operations Manager Name Role Phone Val Draper MD Primary Care Provider +1- [phone] Encounter Details Date Type Department Care Team (Late st Contact Info) Description 06/12/2016 Documentation [facility] [place] Family Medicine [address] [place], [place] [phone] Family Medicine, Physician [address] [place], [place] 051201 Social History Tobacco Use Types Packs/Day Years [...] on filedocumented in this encounter Care Teams Legal Operations Manager Relationship Specialty Start Date End Date Val Draper MD [address] [place] [address] 99651 PCP - General 04/16/17 07/12/24 documented as of this encounter
--- OUTSIDE RECORDS SUMMARY | 2025-07-31 17:30 | XMS_ITS | Encounter Summary ---
Author Organization [facility] Address [address] [place] [address]1962 Phone Care Team Providers Care Operations And Maintenance Manager Name Role Phone Val Draper MD Primary Care Provider +1- [phone] Encounter Details Date Type Department Care Team (Late st Contact Info) Description 04/22/2017 Conversion Encounter [facility] [place] [address] [place] [address] Social History Tobacco Use Types Packs/Day Years [...] on filedocumented in this encounter Care Teams Operations And Maintenance Manager Relationship Specialty Start Date End Date Val Draper MD [address] [place] [address] PCP - General 04/16/17 07/12/24 documented as of this encounter
--- OUTSIDE RECORDS SUMMARY | 2025-07-31 17:30 | XMS_ITS | Encounter Summary ---
Author Organization [facility] Address [address] [place] [address] 8[address]64 Phone Care Team Providers Care Fashion Supervisor Name Role Phone Val Draper MD Primary Care Provider +1- [phone] Encounter Details Date Type Department Care Team (Late st Contact Info) Description 04/21/2013 Documentation [facility] [place] [address] [place], [place] [phone] Family Medicine, Physician [address] [place], [place] 561311 Social History Tobacco Use Types Packs/Day Years [...] on filedocumented in this encounter Care Teams Fashion Supervisor Relationship Specialty Start Date End Date Val Draper MD [address] [place] [address] 36531 PCP - General 04/16/17 07/12/24 documented as of this encounter
--- OUTSIDE RECORDS SUMMARY | 2025-07-31 17:30 | XMS_ITS | Encounter Summary ---
Author Organization [facility] Address [address] [place] [address] 20719 Phone Care Team Providers Care Rewriter Name Role Phone Val Draper MD Primary Care Provider +1- [phone] Encounter Details Date Type Department Care Team (Late st Contact Info) Description 05/30/2015 Documentation [facility] [place] [address] [place], [place] [phone] Family Medicine, Physician [address] [place], [place] 054031 Social History Tobacco Use Types Packs/Day Years [...] on filedocumented in this encounter Care Teams Rewriter Relationship Specialty Start Date End Date Val Draper MD [address] [place] [address] 34240 PCP - General 04/16/17 07/12/24 documented as of this encounter
--- OUTSIDE RECORDS SUMMARY | 2025-07-31 17:30 | XMS_ITS | Encounter Summary ---
Author Organization [facility] Address [address] [place] [address] 16442 Phone Care Team Providers Care Agricultural Engineering Technicians Name Role Phone Val Draper MD Primary Care Provider +1- [phone] Encounter Details Date Type Department Care Team (Late st Contact Info) Description 03/02/2017 Documentation [facility] [place] [address] [place], [place] 1699493 Family Medicine, Physician [address] [place], [place] 118471 Social History Tobacco Use Types Packs/Day Years [...] on filedocumented in this encounter Care Teams Agricultural Engineering Technicians Relationship Specialty Start Date End Date Val Draper MD [address] [place] [address] 48039 PCP - General 04/16/17 07/12/24 documented as of this encounter
--- OUTSIDE RECORDS SUMMARY | 2025-07-31 17:30 | XMS_ITS | Encounter Summary ---
Author Organization [facility] Address [address] [place] [address] 24400 Phone Care Team Providers Care Optimization Consultant Name Role Phone Val Draper MD Primary Care Provider +1- [phone] Encounter Details Date Type Department Care Team (Late st Contact Info) Description 11/09/2014 Documentation [facility] [place] [address] [place], [place] [phone] Family Medicine, Physician [address] [place], [place] 623811 Social History Tobacco Use Types Packs/Day Years [...] on filedocumented in this encounter Care Teams Optimization Consultant Relationship Specialty Start Date End Date Val Draper MD [address] [place] [address] 66164 PCP - General 04/16/17 07/12/24 documented as of this encounter
--- OUTSIDE RECORDS SUMMARY | 2025-07-31 17:30 | XMS_ITS | Encounter Summary ---
Author Organization [facility] Address [address] [place] [address] 23872 Phone Care Team Providers Care Scale Tank Operator Name Role Phone Val Draper MD Primary Care Provider +1- [phone] Encounter Details Date Type Department Care Team (Late st Contact Info) Description 07/25/2012 Documentation [facility] [place] [address] [place], [place] 6981193 Family Medicine, Physician [address] [place], [place] 371811 Social History Tobacco Use Types Packs/Day Years [...] on filedocumented in this encounter Care Teams Scale Tank Operator Relationship Specialty Start Date End Date Val Draper MD [address] [place] [address] 63323 PCP - General 04/16/17 07/12/24 documented as of this encounter
--- OUTSIDE RECORDS SUMMARY | 2025-07-31 17:30 | XMS_ITS | Encounter Summary ---
Author Organization [facility] Address [address] [place] [address] 83056 Phone Care Team Providers Care Overhauler Helper Name Role Phone Val Draper MD Primary Care Provider +1- [phone] Encounter Details Date Type Department Care Team (Late st Contact Info) Description 05/30/2015 Documentation [facility] [place] [address] [place], [place] 0364993 Family Medicine, Physician [address] [place], [place] 061471 Social History Tobacco Use Types Packs/Day Years [...] on filedocumented in this encounter Care Teams Overhauler Helper Relationship Specialty Start Date End Date Val Draper MD [address] [place] [address] 72890 PCP - General 04/16/17 07/12/24 documented as of this encounter
--- OUTSIDE RECORDS SUMMARY | 2025-07-31 17:30 | XMS_ITS | Encounter Summary ---
Author Organization [facility] Address [address] [place] [address] 65123 Phone Care Team Providers Care Rewinder Operator Name Role Phone Val Draper MD Primary Care Provider +1- [phone] Encounter Details Date Type Department Care Team (Late st Contact Info) Description 11/09/[address] [facility] [place] [address] [place], [place] 9835693 Family Medicine, Physician [address] [place], [place] 001171 Social History Tobacco Use Types Packs/Day Years [...] on filedocumented in this encounter Care Teams Rewinder Operator Relationship Specialty Start Date End Date Val Draper MD [address] [place] [address] 33646 PCP - General 04/16/17 07/12/24 documented as of this encounter
--- OUTSIDE RECORDS SUMMARY | 2025-07-31 17:30 | XMS_ITS | Encounter Summary ---
Author Organization [facility] Address [address] [place] [address] 71323 Phone Care Team Providers Care Sailing Instructor Name Role Phone Val Draper MD Primary Care Provider +1- [phone] Encounter Details Date Type Department Care Team (Late st Contact Info) Description 04/05/2012 Documentation [facility] [place] [address] [place], [place] 4075393 Family Medicine, Physician [address] [place], [place] 806241 Social History Tobacco Use Types Packs/Day Years [...] on filedocumented in this encounter Care Teams Sailing Instructor Relationship Specialty Start Date End Date Val Draper MD [address] [place] [address] 73220 PCP - General 04/16/17 07/12/24 documented as of this encounter
--- OUTSIDE RECORDS SUMMARY | 2025-07-31 17:30 | XMS_ITS | Encounter Summary ---
Author Organization [facility] Address [address] [place] [address] 51919 Phone Care Team Providers Care Manager Rn Case Name Role Phone Val Draper MD Primary Care Provider +1- [phone] Encounter Details Date Type Department Care Team (Late st Contact Info) Description 11/09/2014 Documentation [facility] [place] [address] [place], [place] 9341893 Family Medicine, Physician [address] [place], [place] 065941 Social History Tobacco Use Types Packs/Day Years [...] on filedocumented in this encounter Care Teams Manager Rn Case Relationship Specialty Start Date End Date Val Draper MD [address] [place] [address] 59667 PCP - General 04/16/17 07/12/24 documented as of this encounter
--- OUTSIDE RECORDS SUMMARY | 2025-07-31 17:30 | XMS_ITS | Clinical Summary ---
Author Organization [facility] Address [address] [place] [address] 18936 Phone Care Team Providers Care Power Brake Rebuilder Name Role Phone Unavailable Primary Care Provider [...] of *CVA/Stroke, No family history of *Sudden /CT under 55, , No family history of [...] Completed 04/22/2022, 09/15/2021 Procedures * Due to [place] state law, this organization might not be sharing sensitive test results. Procedure Name Priority Date/Time Associated Diagnosis Comments CHLAMYDIA AND GONORRHEA, AMPLIFIED Routine 05/30/2024 9:48 AM EDT Screening examination for bacterial and spirochetal disease from Last 3 Months or Most Recently Relevant to Health Maintenance Results * Due to [place] state law, this organization might not be sharing sensitive test results. * Chlamydia and Gonorrhoea, Amplified (Urine) (05/30/2024 9:48 AM EDT) C trach JINNY Negative Negative [facility] N gonorrhoeae JINNY Negative Negative [facility] Urine (Urine, Random (not clean void)) 05/30/2024 9:48 AM EDT 05/30/2024 Comment:UR Narrative [facility] - 06/01/2024 12:06 AM EDT Performed at: 01 - [facility], [address], [place], [place] [id number] Aquatic Physiotherapist: Fadi Stiles MD, Phone: [phone] us Val Draper MD LAB MICROBIOLOGY - GENERAL ORDERABLES Final Result [facility] [address] [place] [address] from Last 3 Months or Most Recently Relevant to Health Maintenance
--- OUTSIDE RECORDS SUMMARY | 2025-07-31 17:30 | XMS_ITS | Patient Health Record ---
Author Organization [facility] [place] Address [address] [place] [address] Care Team Providers Care Sleeve Turner Name Role Phone Baron FOSTER, Val Primary Care Provider Unav Mata Paul Unavailable [phone] Gretta Zafar Unavailable [phone] Allergies Allergen (clinical drug ingredient) Drug/Non Drug [...] Negative Encounters Encounter Location Date Provider Diagnosis [facility] [address] [place] [address] 02/05/2025 Gretta Zafar Plan Of Treatment Pending Test Test Name Order Date X ray : Foot, left 3V 09/16/2020 X ray : Foot, right 3V 09/16/2020 Insurance Providers Payer Name Payer Address Payer Phone Subscriber Number Group Number Insured Name Patient Relationship to Insured Coverage Start Date Coverage End Date Ada [employer] Others [address] [place] [address] [phone] [id number] Juan Blanco Child - Insured does not have Financial Responsibility (includes legally adopted child) Medical (General) History Medical History History ICD Code Broken bones Psoriasis/eczema Anxiety Surgical History Surgery Date(Month/Year)
--- OUTSIDE RECORDS SUMMARY | 2025-07-31 17:30 | XMS_ITS | Clinical Summary ---
Author Organization [facility] Address [address] [facility] [address] [place] [address] 92479 Phone Care Team Providers Care Churn Operator Name Role Phone Teresa Shaw MD [...] Description 05/10/2025 12:00 PM EDT Office Visit [facility] [address] [phone] Constanza Martinez FNP Allergic dermatitis (Primary Dx) from Last 3 Months Immunizations [...] this topic Medical Devices Not on file Insurance [place] [address] [place] [address] [facility] [place] [place] [address] [facility] Care Teams Churn Operator Relationship Specialty Start Date End Date Teresa Shaw MD [address] [place] [address] 73727 PCP - General Internal Medicine 04/20/25 Additional Source Comments The information contained in this document represents components of the legal health record. It is not the complete legal health record.[facility]
--- OUTSIDE RECORDS SUMMARY | 2025-07-31 17:30 | XMS_ITS | Encounter Summary ---
Author Organization [facility] Address [address] [place] [address] 94935 Phone Care Team Providers Care Parts Puller Name Role Phone Val Draper MD Primary Care Provider +1- [phone] Encounter Details Date Type Department Care Team (Late st Contact Info) Description 03/23/2011 Documentation [facility] [place] Family Medicine [address] [place], [place] 2094393 Family Medicine, Physician [address] [place], [place] 419361 Social History Tobacco Use Types Packs/Day Years [...] on filedocumented in this encounter Care Teams Parts Puller Relationship Specialty Start Date End Date Val Draper MD [address] [place] [address] 93033 PCP - General 04/16/17 07/12/24 documented as of this encounter
--- OUTSIDE RECORDS SUMMARY | 2025-07-31 17:30 | XMS_ITS | Encounter Summary ---
Author Organization [facility] Address [address] [place] [address] 46853 Phone Care Team Providers Care Wireless Store Manager Name Role Phone Val Draper MD Primary Care Provider +1- [phone] Encounter Details Date Type Department Care Team (Late st Contact Info) Description 11/09/2014 Documentation [facility] [place] [address] [place], [place] [phone] Family Medicine, Physician [address] [place], [place] [address] Social History Tobacco Use Types Packs/Day Years [...] on filedocumented in this encounter Care Teams Wireless Store Manager Relationship Specialty Start Date End Date Val Draper MD [address] [place] [address] 44007 PCP - General 04/16/17 07/12/24 documented as of this encounter
--- OUTSIDE RECORDS SUMMARY | 2025-07-31 17:30 | XMS_ITS | Encounter Summary ---
Author Organization [facility] Address [address] [place] [address] 69105 Phone Care Team Providers Care Ceiling Installer Name Role Phone Val Draper MD Primary Care Provider +1- [phone] Encounter Details Date Type Department Care Team (Late st Contact Info) Description 01/14/2017 Documentation [facility] [place] [address] [place], [place] [phone] Family Medicine, Physician [address] [place], [place] 697921 Social History Tobacco Use Types Packs/Day Years [...] on filedocumented in this encounter Care Teams Ceiling Installer Relationship Specialty Start Date End Date Val Draper MD [address] [place] [address] 73081 PCP - General 04/16/17 07/12/24 documented as of this encounter
--- OUTSIDE RECORDS SUMMARY | 2025-07-31 17:30 | XMS_ITS | Encounter Summary ---
Author Organization [facility] Address [address] [place] [address] 46208 Phone Care Team Providers Care Heating Element Repairer Name Role Phone Val Draper MD Primary Care Provider +1- [phone] Encounter Details Date Type Department Care Team (Late st Contact Info) Description 05/11/2013 Documentation [facility] [place] [address] [place], [place] 6476693 Family Medicine, Physician [address] [place], [place] 448881 Social History Tobacco Use Types Packs/Day Years [...] filedocumented in this encounter Care Teams Heating Element Repairer Relationship Specialty Start Date End Date Val Draper MD [address] [place] [address] 32746 PCP - General 04/16/17 07/12/24 documented as of this encounter
--- OUTSIDE RECORDS SUMMARY | 2025-07-31 17:30 | XMS_ITS | Encounter Summary ---
Author Organization [facility] Address [address] [place] [address] 86954 Phone Care Team Providers Care Precinct Police Lieutenant Name Role Phone Val Draper MD Primary Care Provider +1- [phone] Encounter Details Date Type Department Care Team (Late st Contact Info) Description 11/09/2014 Documentation [facility] [place] [address] [place], [place] [phone] Family Medicine, Physician [address] [place], [place] 373031 Social History Tobacco Use Types Packs/Day Years [...] on filedocumented in this encounter Care Teams Precinct Police Lieutenant Relationship Specialty Start Date End Date Val Draper MD [address] [place] [address] 80515 PCP - General 04/16/17 07/12/24 documented as of this encounter
--- OUTSIDE RECORDS SUMMARY | 2025-07-31 17:30 | XMS_ITS | Encounter Summary ---
Author Organization [facility] Address [address] [place] [id number] Phone Care Team Providers Care Make Up Girl Name Role Phone Val Draper MD Primary Care Provider [phone]- [phone] Encounter Details Date Type Department Care Team (Late st Contact Info) Description 05/22/2014 Documentation [facility] [place] [facility] [address] [place], [place] [id number] Family Medicine, Physician [address] [place], [place] [id number] Social History Tobacco Use Types Packs/Day Years [...] on filedocumented in this encounter Care Teams Make Up Girl Relationship Specialty Start Date End Date Val Draper MD [address] [place] [id number] PCP - General 04/16/17 07/12/24 documented as of this encounter
--- OUTSIDE RECORDS SUMMARY | 2025-07-31 17:30 | XMS_ITS | Encounter Summary ---
Author Organization [facility] Address [address] [place] [id number] Phone Care Team Providers Care Foot Caster Name Role Phone Val Draper MD Primary Care Provider [phone]- [phone] Encounter Details Date Type Department Care Team (Late st Contact Info) Description 11/09/2014 [place] [facility] [place] [facility] [address] [place], [place] [phone] Family Medicine, Physician [address] [place], [place] [phone] Social History Tobacco Use Types Packs/Day Years [...] on filedocumented in this encounter Care Teams Foot Caster Relationship Specialty Start Date End Date Val Draper MD [address] [place] [id number] PCP - General 04/16/17 07/12/24 documented as of this encounter
== END 2025-07-31 15:18 | disposition home or self-care (01) ==
LOC: HO.HMCFM 13:34
PROVIDERS: PCP Internal Medicine; Visit Provider Internal Medicine
DX: R21 Rash and other nonspecific skin eruption (principal); R23.8 Other skin changes